=== PATIENT | female | born 1995 ===

== ENCOUNTER 2020-02-27 13:14 | Outpatient (REF) | payer OTHER, SELFPAY ==
[2020-02-28 03:18] LABS: CT PCR NOT DETECTED (Not Detect.); NG PCR NOT DETECTED (Not Detect.)
== END 2020-02-27 13:15 | disposition home or self-care (01) ==
LOC: HO.LAB 13:14
PROVIDERS: PCP Internal Medicine; Referring Provider Internal Medicine; Visit Provider Advanced Practice Midwife
DX: Z01.419 Encounter for gynecological examination (general) (routine) without abnormal findings (principal); Z11.3 Encounter for screening for infections with a predominantly sexual mode of transmission; E66.01 Morbid (severe) obesity due to excess calories
CPT/HCPCS: 87491; 87591; 88142

== ENCOUNTER 2020-03-26 10:52 | Outpatient (REF) | payer OTHER, SELFPAY ==
[2020-03-26 12:12] LABS: C Reactive Protein 1.09 mg/dL (< or = 0.50)
[2020-03-26 12:36] LABS: Thyroid Stimulating Hormone 2.48 uIU/mL (0.32-4.0)
[2020-03-26 12:55] LABS: Erythrocyte Sedimentation Rate 19 MM/HR (0-20)
[2020-03-29 00:07] LABS: Anti Nuclear Antibody Screen POSITIVE (NEGATIVE)
== END 2020-03-26 10:53 | disposition home or self-care (01) ==
LOC: HO.LAB 10:52
PROVIDERS: PCP Internal Medicine; Visit Provider Psychiatry & Neurology Neurology
DX: M25.50 Pain in unspecified joint (principal)
CPT/HCPCS: 36415; 84443; 85652; 86038; 86039; 86140

== ENCOUNTER 2020-06-14 15:04 | Outpatient (REF) | payer OTHER, SELFPAY ==
--- NOTE | ~2020-06-14 | XR_ITS ---
EXAMINATION: BILATERAL HAND AND WRIST X-RAY CLINICAL INFORMATION: Pain COMPARISON: None TECHNIQUE: 4 views of the hand and wrist FINDINGS: Bone alignment is normal. No fracture or dislocation is seen. Joint spaces are normal. Soft tissues are normal. XR/XR hand wrist LT IMPRESSION: Unremarkable exam.
--- NOTE | ~2020-06-14 | XR_ITS ---
EXAMINATION: BILATERAL HAND AND WRIST X-RAY CLINICAL INFORMATION: Pain COMPARISON: None TECHNIQUE: 4 views of the hand and wrist FINDINGS: Bone alignment is normal. No fracture or dislocation is seen. Joint spaces are normal. Soft tissues are normal. XR/XR hand wrist RT IMPRESSION: Unremarkable exam.
[2020-06-14 16:20] LABS: MANUAL DIFF FLAG NO
[2020-06-14 16:22] LABS: Glucose Urine UA NEG (NEG); Leukocyte Esterase Urine NEG (NEG); Nitrite Urine NEG (NEG); Specific Gravity - Urine >= 1.030 (1.005-1.025); Urine Blood TRACE (NEG); Urine Ketones NEG (NEG); Urine Protein NEG (NEG-TRACE)
[2020-06-14 16:25] LABS: Appearance Urine CLEAR; Color Urine YELLOW
[2020-06-14 16:28] LABS: Basophils Absolute Auto 0.1 X10*3/uL (0.0-0.2); Eosinophils Absolute Auto 0.1 X10*3/uL (0.0-0.4); Eosinophils Percent Auto 1.7 % (0-4); Hematocrit 42.8 % (37-47); Hemoglobin 13.4 g/dl (12.0-16.0); Lymphocytes Absolute Auto 1.8 X10*3/uL (1.2-4.9); Lymphocytes Percent Auto 31.8 % (20-40); Mean Corpuscular HGB Conc 31.3 g/dl (31.0-35.0); Mean Corpuscular Hemoglobin 27.5 pg (27.0-33.0); Mean Corpuscular Volume 87.7 fL (80-98); Mean Platelet Volume 11.6 fL (9.4-12.3); Monocytes Absolute Auto 0.3 X10*3/uL (0.1-1.2); Monocytes Percent Auto 4.8 % (2-11); Neutrophils Absolute Auto 3.5 X10*3/uL (2.0-8.3); Neutrophils Percent Auto 60.7 % (45-73); Platelet Count 304 X10*3/uL (160-400); Red Blood Count 4.88 X10*6/uL (4.20-5.50); Red Cell Distribution Width 11.9 % (11.0-16.0); White Blood Count 5.8 X10*3/uL (4.8-10.8)
[2020-06-14 16:32] LABS: Bacteria Urine 1+ /LPF; RBC Urine 0-2 /HPF (0); Squamous Epithelial Cell Urine 1+ /LPF; WBC Urine 0 /HPF (0-4)
[2020-06-14 16:47] LABS: Alanine Aminotransferase 17 U/L (0-31); Albumin Level 3.9 g/dL (3.5-5.0); Alkaline Phosphatase 70 U/L (39-117); Anion Gap 12 (12-20); Aspartate Amino Transferase 18 U/L (5-31); Bilirubin Total 0.4 mg/dL (0.0-1.0); Blood Urea Nitrogen 7 mg/dL (9-16); C Reactive Protein 0.91 mg/dL (< or = 0.50); Calcium 8.6 mg/dL (8.4-10.2); Carbon Dioxide 21 mmol/L (22-29); Chloride 111 mmol/L (96-108); Estimated Glomerular Filt Rate > 60; Glucose Random 96 mg/dL (60-115); Sodium 140 mmol/L (135-145); Total Protein 7.3 g/dL (6.5-8.0)
[2020-06-14 17:51] LABS: Erythrocyte Sedimentation Rate 21 MM/HR (0-20)
[2020-06-15 12:32] LABS: Complement C3 164 mg/dL (83-193)
[2020-06-15 12:58] LABS: Anti DNA DS Antibody 1 IU/mL; Antibody to SS-A Antigen <1.0 NEG AI (<1.0 NEG); Antibody to SS-B Antigen <1.0 NEG AI (<1.0 NEG); Cyclic Citrullinated Peptide <16 UNITS; SM/Ribonucleoprotein Ab <1.0 NEG AI (<1.0 NEG); Smith Protein <1.0 NEG AI (<1.0 NEG)
== END 2020-06-14 15:05 | disposition home or self-care (01) ==
LOC: HO.LAB 15:04
PROVIDERS: PCP Internal Medicine; Visit Provider Student in an Organized Health Care Education/Training Program
DX: M25.50 Pain in unspecified joint (principal)
CPT/HCPCS: 36415; 73110; 73130; 80053; 81001; 85025; 85652; 86140; 86160; 86200; 86225; 86235; 99202

== ENCOUNTER → 2020-07-10 15:03 | Outpatient (BNVA) | payer OTHER, SELFPAY | PROVIDERS: PCP Internal Medicine; Visit Provider Student in an Organized Health Care Education/Training Program | DX: M79.642 Pain in left hand (principal); M79.641 Pain in right hand | CPT/HCPCS: 99212 ==

== ENCOUNTER 2021-01-15 15:57 | Outpatient (REF) | payer OTHER, SELFPAY ==
--- NOTE | ~2021-01-15 | CT_ITS ---
EXAMINATION: CT HEAD WITHOUT CONTRAST CLINICAL INFORMATION: Pseudotumor cerebri. COMPARISON: None TECHNIQUE: Contiguous axial imaging was performed from the skull base to vertex without intravenous administration of contrast. This CT examination was performed using dose optimization techniques as appropriate, variously including the following: *Automated exposure control *Adjustment of mA and/or kV according to patient size (this includes techniques or standardized protocols for targeted exams where dose is matched to indication/reason for exam; i.e. extremities or head) *Use of iterative reconstruction technique DLP: 770 mGy-cm FINDINGS: There is no evidence of acute intracranial hemorrhage or territorial infarction. No abnormal mass effect or midline shift is seen. Corona to white matter differentiation is well preserved. No extra-axial fluid collections are identified. The ventricles are normal in size. There is no abnormal attenuation within the brain parenchyma. The osseous structures and soft tissues are normal. The mastoid air cells and visualized portions of the paranasal sinuses are well aerated. CT/CT head/brain wo con IMPRESSION: No acute intracranial process.
== END 2021-01-15 15:58 | disposition home or self-care (01) ==
LOC: HO.CT 15:57
PROVIDERS: PCP Internal Medicine; Visit Provider Psychiatry & Neurology Neurology
DX: G93.2 Benign intracranial hypertension (principal)
CPT/HCPCS: 70450

== ENCOUNTER 2021-01-17 09:07 | Day surgery (SDC) | payer OTHER, SELFPAY ==
[2021-01-17] VITALS (7 sets, daily range): BP systolic 107–131; BP diastolic 67–84; PULSE 79–92; RESP 16–20; TEMP 36.5; O2SAT 98–100; BMI 51.1
--- NOTE | ~2021-01-17 | FL_ITS ---
EXAMINATION: XR LUMBAR PUNCTURE CLINICAL INFORMATION: Pseudotumor cerebri. COMPARISON: None TECHNIQUE: Following explaining fluoroscopy-guided lumbar puncture procedure, benefits and risk, a written consent was obtained. Patient was placed prone on fluoroscopy table and low back area was cleaned and draped in usual sterile manner. 1% lidocaine was injected at puncture site. A 20-gauge 6 inch long spinal needle was advanced from the skin intrathecally in the left at a midline fashion. After obtaining and observing CSF return and patient was quickly placed in left lateral decubitus view and opening CSF pressure was obtained. CSF was clear 4 test tubes. Post CSF collection the stylet was introduced the needle withdrawn. Patient tolerated procedure extremely well. Simple Band-Aid applied postprocedure. FINDINGS: On AP projection the visualized vertebral heights, alignment and disc heights are normal. The opening CSF pressure measures 17 cm of water. Approximately 30 mL of clear CSF fluid collected in 4 test tubes. FLUOROSCOPY TIME: 0.5 minutes DOSE AREA PRODUCT: 8.345 uGy-m2 (microgray-meter squared) FL/FL guided lumbar puncture LP IMPRESSION: Successful fluoroscopy-guided L4-L5 lumbar performed. Opening CSF pressure 17 cm water. Approximately 13 mL of clear CSF fluid was collected.
[2021-01-17 09:53] LABS: MANUAL DIFF FLAG NO
[2021-01-17 09:57] LABS: Basophils Absolute Auto 0.1 X10*3/uL (0.0-0.2); Basophils Percent Auto 0.9 % (0-2); Eosinophils Absolute Auto 0.1 X10*3/uL (0.0-0.4); Eosinophils Percent Auto 1.1 % (0-4); Hematocrit 41.8 % (37-47); Hemoglobin 13.2 g/dl (12.0-16.0); Imm Gran Abs Auto 0.02 X10*3/uL (0.00-0.03); Imm Gran Pct Auto 0.2 % (0.0-0.4); Lymphocytes Absolute Auto 4.4 X10*3/uL (1.2-4.9); Lymphocytes Percent Auto 44.6 % (20-40); Mean Corpuscular HGB Conc 31.6 g/dl (31.0-35.0); Mean Corpuscular Hemoglobin 28.3 pg (27.0-33.0); Mean Corpuscular Volume 89.7 fL (80-98); Monocytes Absolute Auto 0.6 X10*3/uL (0.1-1.2); Monocytes Percent Auto 5.8 % (2-11); Neutrophils Absolute Auto 4.7 X10*3/uL (2.0-8.3); Neutrophils Percent Auto 47.4 % (45-73); Platelet Count 301 X10*3/uL (160-400); Red Blood Count 4.66 X10*6/uL (4.20-5.50); Red Cell Distribution Width 13.4 % (11.0-16.0); White Blood Count 9.9 X10*3/uL (4.8-10.8)
[2021-01-17 10:01] LABS: Prothrombin Time 11.6 SEC (9.9-13.0)
[2021-01-17 10:04] LABS: Partial Thromboplastin Time 33.2 SEC (24.1-38.0)
[2021-01-17 11:09] LABS: UPreg QC Valid YES; Urine Pregnancy NEGATIVE (NEGATIVE)
[2021-01-17] MEDS: Acetaminophen 325 MG TABLET 650 MG PO (13:01)
[2021-01-17 13:22] LABS: CSF Appearance Clear, Colorless; CSF Tube # 1
[2021-01-17 13:31] LABS: Glucose CSF 65 mg/dL; Total Protein CSF 23.7 mg/dL (15-45)
[2021-01-17 14:34] LABS: Appearance CSF CLEAR; CSF Tube # 4; CSF Volume 4.5 ML; Color CSF COLORLESS; Red Blood Cell CSF 226 MM*3; White Blood Cell CSF 2 MM*3
[2021-01-17 14:35] LABS: Lymphocytes CSF 80 %; Neutrophils CSF 20 %
== END 2021-01-17 15:40 | disposition home or self-care (01) ==
PROVIDERS: Psychiatry & Neurology Neurology; PCP Internal Medicine; Visit Provider Radiology Diagnostic Radiology
PROC: 009U3ZZ Drainage of Spinal Canal, Percutaneous Approach (ICD-10-PCS; CPT 62270; principal; 2021-01-17 11:00)
DX: G93.2 Benign intracranial hypertension (principal); G43.909 Migraine, unspecified, not intractable, without status migrainosus; G62.9 Polyneuropathy, unspecified; M79.643 Pain in unspecified hand; M25.50 Pain in unspecified joint; M79.7 Fibromyalgia; R42 Dizziness and giddiness; Z79.899 Other long term (current) drug therapy
CPT/HCPCS: 36415; 62328; 81025; 82945; 84157; 85025; 85610; 85730; 87015; 87070; 87205; 89051

== ENCOUNTER 2021-01-19 11:55 | Emergency (ER) | payer OTHER, SELFPAY ==
[2021-01-19 12:03] VITALS: BP 137/84; PULSE 96; RESP 18; TEMP 36.9; O2SAT 98; BMI 51.1
[2021-01-19 12:50] LABS: MANUAL DIFF FLAG NO
[2021-01-19 12:57] LABS: Basophils Absolute Auto 0.1 X10*3/uL (0.0-0.2); Basophils Percent Auto 0.6 % (0-2); Eosinophils Absolute Auto 0.1 X10*3/uL (0.0-0.4); Eosinophils Percent Auto 0.8 % (0-4); Hematocrit 44.8 % (37-47); Imm Gran Abs Auto 0.04 X10*3/uL (0.00-0.03); Imm Gran Pct Auto 0.4 % (0.0-0.4); Lymphocytes Absolute Auto 1.8 X10*3/uL (1.2-4.9); Lymphocytes Percent Auto 16.8 % (20-40); Mean Corpuscular HGB Conc 31.3 g/dl (31.0-35.0); Mean Corpuscular Hemoglobin 27.8 pg (27.0-33.0); Mean Corpuscular Volume 89.1 fL (80-98); Mean Platelet Volume 10.3 fL (9.4-12.3); Monocytes Absolute Auto 0.4 X10*3/uL (0.1-1.2); Monocytes Percent Auto 3.3 % (2-11); Neutrophils Absolute Auto 8.3 X10*3/uL (2.0-8.3); Neutrophils Percent Auto 78.1 % (45-73); Platelet Count 305 X10*3/uL (160-400); Red Blood Count 5.03 X10*6/uL (4.20-5.50); Red Cell Distribution Width 13.5 % (11.0-16.0); White Blood Count 10.6 X10*3/uL (4.8-10.8)
[2021-01-19 13:02] LABS: Prothrombin Time 11.2 SEC (9.9-13.0)
[2021-01-19 13:05] LABS: Partial Thromboplastin Time 34.6 SEC (24.1-38.0)
[2021-01-19 13:16] LABS: Anion Gap 11 (12-20); Blood Urea Nitrogen 13 mg/dL (9-16); Calcium 9.3 mg/dL (8.4-10.2); Carbon Dioxide 21 mmol/L (22-29); Chloride 114 mmol/L (96-108); Creatinine Clr Calc Pharmacy 129.9; Estimated Glomerular Filt Rate > 60; Glucose Random 124 mg/dL (60-115); Potassium 4.2 mmol/L (3.3-5.1); Sodium 142 mmol/L (135-145)
--- NOTE | 2021-01-19 13:22 | ED.GENADULT ---
HPI - General Adult General Chief complaint: General Medical Stated complaint: BLOOD PATCH Time Seen by Provider: 01/19/21 12:13 Source: patient and old records reviewed Mode of arrival: ambulatory Limitations: no limitations History of Present Illness complaint: headache 24 hours post LP Onset (ago): day(s) (1) Location: head Severity: severe Quality: crushing Pain Consistency: intermittent Relieving factors: immobilization Exacerbating factors: other (standing up) Associated symptoms: nausea/vomiting Treatments prior to arrival: other (tried tylenol with no relief) Related Data Home Medications Medication Instructions Recorded Confirmed gabapentin 600 mg tablet 600 mg PO TID 12/14/20 12/14/20 prednisone 20 mg tablet 20 mg PO DAILY 12/14/20 12/14/20 Previous Rx's Medication Instructions Recorded propranolol 10 mg tablet 10 mg PO .qhs 30 Days #30 tab 12/17/20 meclizine 25 mg tablet 25 mg PO BID 30 Days #60 tab 12/31/20 Allergies Allergy/AdvReac Type Severity Reaction Status Date / Time No Known Allergies Allergy Verified 01/17/21 09:36 Environmental Allergy Unknown Unknown Uncoded 12/14/20 09:48 Review of Systems Review of Systems: Constitutional : No Fever, No Chills, No Fatigue ENT/Mouth : No sore throat, No Rhinorrhea Eyes: No Eye Pain, No Swelling, No Redness Cardiovascular : No Chest Pain, No SOB, No Dyspnea on Exertion Respiratory : No Cough, No Sputum Gastrointestinal : pos Nausea, No Vomiting, No Diarrhea, No abdominal Pain Genitourinary : No Dysuria, No Urinary Frequency, No Hematuria, Musculoskeletal : No joint pain, No Myalgias, No Joint Swelling Skin : No Skin Lesions, No rash Neuro : No Weakness, No Numbness, No Dizziness, positive Headache Psych : No Anxiety/Panic, No Depression Heme/Lymph: No Bruising, No Bleeding,No Lymphadenopathy Endocrine : No Polyuria, No Polydipsia All other systems reviewed and are negative PMFSH Past Medical History Attestation statement: The following information was validated with the patient. Medical History Morbid obesity Tinea versicolor Family History Family History Father HTN (hypertension) Mother Diabetes mellitus CVD (cardiovascular disease) Maternal Aunt Diabetes mellitus Breast cancer Maternal Uncle Colon cancer Other Mental health disorder Substance use disorder Social History Social History Housing: Apartment Alcohol intake: never Patient Tobacco Use Status: Never used Tobacco Use of substances other than those prescribed or required for medical reasons: No Advance Directives: No Advance Directives Information Provided: No Patient : No Current occupational status: employed Gender identity: Female Physical Exam Vital Signs: Vital Signs: Last Vital Signs Temp 98.7 F 01/19/21 13:38 Pulse 88 01/19/21 13:38 Resp 14 01/19/21 13:38 BP 129/86 01/19/21 13:38 Pulse Ox 100 01/19/21 13:38 Body Mass Index 51.1 Appearance: Alert. Oriented X3. No acute distress. Eyes: Pupils equal, round and reactive to light. ENT: Pharynx normal. Neck: Normal inspection. Neck supple. Has pain with lifting head up CVS: Normal heart rate and rhythm. Pulses normal. Respiratory: No respiratory distress. Breath sounds normal. Abdomen: Soft and nontender. Back: no large mass felt, ecchymosis seen Skin: Skin warm and dry. Normal skin color. Normal skin turgor. Extremities: No lower extremity edema. No calf ttp Neuro: Oriented X 3. No motor deficit. No sensory deficit. 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 for blood patch plan is for either home with good pain control if she does well but may need IR procedure with anesthesia pending input signed out to Alma GUZMAN pending disposition Medical Decision Making MDM Narrative Medical decision making narrative: 25 yo female with pseudotumor cerebrii s/p LP with drainage on 01/17 L4-L5 comes in with headache 24 hours after the procedure dull when laying down but she cannot get up or walk due to the severity of her headache when she does, normal neuro exam doubt SAH, [place]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 - will discuss with anesthesia for possible blood patch Lab Data Result diagrams: 01/19/21 12:39 01/19/21 12:39 Labs: Lab Results 01/19/21 01/19/21 01/19/21 Range/Units 12:39 12:39 12:39 WBC 10.6 (4.8-10.8) X10*3/uL RBC 5.03 (4.20-5.50) X10*6/uL Hgb 14.0 (12.0-16.0) g/dl Hct 44.8 (37-47) % MCV 89.1 (80-98) fL MCH 27.8 (27.0-33.0) pg MCHC 31.3 (31.0-35.0) g/dl RDW 13.5 (11.0-16.0) % Plt Count 305 (160-400) X10*3/uL MPV 10.3 (9.4-12.3) fL Immature Gran % (Auto) 0.4 (0.0-0.4) % Neut % (Auto) 78.1 H (45-73) % Lymph % (Auto) 16.8 L (20-40) % [place] % (Auto) 3.3 (2-11) % Eos % (Auto) 0.8 (0-4) % Baso % (Auto) 0.6 (0-2) % Lymph # (Auto) 1.8 (1.2-4.9) X10*3/uL [place] # (Auto) 0.4 (0.1-1.2) X10*3/uL Eos # (Auto) 0.1 (0.0-0.4) X10*3/uL Baso # (Auto) 0.1 (0.0-0.2) X10*3/uL Abs Immat Gran (auto) 0.04 H (0.00-0.03) X10*3/uL Absolute Neuts (auto) 8.3 (2.0-8.3) X10*3/uL Absolute Nucleated RBC 0.000 (0.0-0.012) X10*3/uL Nucleated RBC % (auto) 0.0 (0.0-0.2) /100WBC PT 11.2 (9.9-13.0) SEC INR 1.0 (0.9-1.1) APTT 34.6 (24.1-38.0) SEC Sodium 142 (135-145) mmol/L Potassium 4.2 (3.3-5.1) mmol/L Chloride 114 H (96-108) mmol/L Carbon Dioxide 21 L (22-29) mmol/L Anion Gap 11 L (12-20) BUN 13 D (9-16) mg/dL Creatinine 0.90 (0.5-1.4) mg/dL Estim Creat Clear Calc 129.9 Estimated GFR > 60 Random Glucose 124 H (60-115) mg/dL Calcium 9.3 D (8.4-10.2) mg/dL Discharge Plan Discharge Clinical Impression: Headache Qualifiers: Headache type: unspecified Headache chronicity pattern: acute headache Intractability: intractable Qualified Code(s): R51.9 - Headache, unspecified Prescriptions: No Action propranolol 10 mg tablet 10 mg PO .qhs 30 Days Qty: 30 RF: 0 meclizine 25 mg tablet 25 mg PO BID 30 Days Qty: 60 RF: 0 gabapentin 600 mg tablet 600 mg PO TID RF: 0 prednisone 20 mg tablet 20 mg PO DAILY RF: 0
[2021-01-19 13:38] VITALS: BP 129/86; PULSE 88; RESP 14; TEMP 37.1; O2SAT 100
[2021-01-19] MEDS: Butalb/Acetamin/Caff 50/325/40 TABLET 2 TAB PO (14:17)
[2021-01-19] MEDS: 0.9 % Sodium Chloride 1,000 ML 999 ML IV (14:17)
[2021-01-19] MEDS: diphenhydrAMINE HCL 50 MG/ML VIAL 25 MG IVPUSH (14:21)
[2021-01-19] MEDS: Metoclopramide HCl 10 MG/2 ML VIAL IVPUSH (14:23)
[2021-01-19 16:03] VITALS: RESP 18
[2021-01-19] MEDS: Morphine Sulfate 4 MG/ML CARTRIDGE IVPUSH (16:03)
[2021-01-19] MEDS: ondansetron HCL 4 MG/2 ML VIAL IVPUSH (16:03)
[2021-01-19 16:09] VITALS: BP 119/70; PULSE 75; RESP 18; TEMP 36.9; O2SAT 96
[2021-01-19 16:10] LABS: COVID-19 Test Negative (Negative); IDNOW Serial# 9DD0AD1C
[2021-01-19] MEDS: 0.9 % Sodium Chloride 1,000 ML 999 ML IVCONT (16:46)
--- NOTE | 2021-01-19 17:12 | P.PNAN_ITS ---
Subjective Subjective Date of Service: 01/20/21 Patient reports: other (Pt had LP by IR on 01/17/21 for pseudotumor cerebri. Day after the procedure she developed positional headaches without other neurological deficits. She is afibrile.) Interval history: PDPH Physical Exam Vital Signs: Vital Signs: Last Vital Signs Temp 98.5 F 01/19/21 16:09 Pulse 75 01/19/21 16:09 Resp 18 01/19/21 16:09 BP 119/70 01/19/21 16:09 Pulse Ox 96 01/19/21 16:09 Body Mass Index 51.1 Const: Orientation/consciousness: oriented to person, oriented to place and oriented to time Neck: Other: no neck stiffness Neck: Yes normal visual inspection, Yes full ROM and Yes no meningeal signs Carotids: normal carotid upstroke Chest: Chest palpation & inspection: normal inspection of the chest Resp: Effort & Inspection: normal respiratory effort Cardio: Rate: regular rate GI: Inspection: Yes normal to inspection : General: Yes no CVA tenderness External Female Exam: normal external appearance Back/Spine/Pelvis: Back: no CVA tenderness Cervical Spine: normal cervical lordosis Thoracic/Lumbar Spine: thoracic and lumbar spine normal to inspection Skin: General skin exam: no rashes or lesions noted Neuro: General: oriented to person, oriented to place, oriented to time, no meningeal signs, no focal motor deficits and CN's II-XI intact bilaterally Cognition (Neuro): normal cognition Extrem: General: Yes normal to inspection Psych: Appearance: grossly normal Progress Note: A&P Assessment and plan Assessment and Plan: PDPH, pt received detailed explanation about the [place] options including the option to refrain from blood patch and get conservative treatment. She preffers blood patch. Risks and benefits were explained and a consent signed. Fall Risk Details Was a PHA Med Consult for Fall Risk requested: no Current Medications: Current Medications Sodium Chloride (Ns) 1,000 mls @ 999 mls/hr IVCONT .Q1H1M LINDA Stop: 01/19/21 17:45 Time Spent With Patient Time: Total time spent is greater than 50% in coordination of care (as documented) at patient's floor/unit and/or counseling patient:yes Time with patient: Greater than 35 minutes No Severe Sepsis: No Severe Sepsis Assessment & Plan Plan: PDPH, pt received detailed explanation about the [place] options including the option to refrain from blood patch and get conservative treatment. She preffers blood patch. Risks and benefits were explained and a consent signed. Patient Instructions: To avoid increased intra-abdominal pressure for the next 24 h Progress Note: Quality Stroke Does the patient have a stroke diagnosis?: No Reason for No Anti-thrombotic by Day Two: N/A - Med Ordered Procedures Date of Service Date of Service: 01/19/21 Abscess I/D Anesthetic used: lidocaine 1% Lumbar Puncture Lumbar Puncture Comments: In the sitting pos. lower back was preppedx3 and draped. 21 ga Thuoty needle inserted in the midline and epidural space was identified about L3-4 level by TAMI Saline technique. Fresh blood was aspirated under steril conditions and 10 ml was slowly injected through the epidural needle. The injection was terminated when pt complained on pressure sensation in lower back and right hip. Patient tolerated the procedure well and reported that headache was immediately resolved. Consent for Procedure: Elective - informed consent obtained Time out performed: Yes Patient position: upright Skin prep: 0.5% Chlorhexidine/Alcohol Local anesthetic used: Lidocaine 1% Amount of anesthesia used (ml): 1 Spinal needle gauge: Other Interspace used: L3-L4 Complications: none Procedural Sedation ASA class: II Preparation: radiation monitor applied and pulse oximeter Complications: none
== END 2021-01-19 19:25 | disposition home or self-care (01) ==
PROVIDERS: Emergency Provider Emergency Medicine; PCP Internal Medicine
DX: R51.9 Headache, unspecified (principal); R11.2 Nausea with vomiting, unspecified; Z20.822 Contact with and (suspected) exposure to COVID-19; Z79.899 Other long term (current) drug therapy
CPT/HCPCS: 36415; 80048; 85025; 85610; 85730; 87635; 96361; 96374; 96375; 99284; J1200; J2270; J2405; J2765

== ENCOUNTER 2021-02-28 22:16 | Emergency (ER) | payer OTHER, SELFPAY ==
[2021-02-28 22:17] VITALS: BP 145/93; PULSE 100; RESP 19; TEMP 36.8; O2SAT 99; BMI 52.3
--- NOTE | 2021-02-28 22:23 | ED.EXTPRO ---
HPI - Extremity Problem General Chief complaint: General Medical Stated complaint: finger nail inj Time Seen by Provider: 02/28/21 22:22 Source: patient Mode of arrival: ambulatory Limitations: no limitations History of Present Illness Complaint: other (nail avulsion) Onset (ago): minute(s) Pain Consistency: constant Location: left and other (pinkie finger) Quality: other (throbbing) Radiation: none Relieving factors: nothing Exacerbating factors: palpation Associated symptoms: other (acrylic nail is hanging off) Context: other (went to hit a bug and struck her nail instead causing it to almost fall off) Related Data Home Medications Medication Instructions Recorded Confirmed gabapentin 600 mg tablet 600 mg PO TID 12/14/20 02/12/21 topiramate 50 mg tablet 50 mg PO BID 02/12/21 02/12/21 Previous Rx's Medication Instructions Recorded meclizine 25 mg tablet 25 mg PO BID 30 Days #60 tab 02/01/21 Allergies Allergy/AdvReac Type Severity Reaction Status Date / Time No Known Allergies Allergy Verified 02/28/21 22:17 Review of Systems Review of Systems: Constitutional : No Fever, No Chills, Cardiovascular : No Chest Pain, No SOB Respiratory : No Dyspnea Gastrointestinal : No abdominal pain Musculoskeletal : No Joint Swelling Skin : No rash, no skin laceration, pos nail avulsion Neuro : No Weakness, No Numbness PMFSH Past Medical History Attestation statement: The following information was validated with the patient. Medical History Carpal tunnel syndrome Fibromyalgia Hypertension Migraines Morbid obesity Tinea versicolor Family History Family History Father HTN (hypertension) Mother Diabetes mellitus CVD (cardiovascular disease) Maternal Aunt Diabetes mellitus Breast cancer Maternal Uncle Colon cancer Other Mental health disorder Substance use disorder Social History Social History Housing: Apartment Alcohol intake: never Patient Tobacco Use Status: Never used Tobacco Advance Directives: No Advance Directives Information Provided: No Patient : No Current occupational status: employed Gender identity: Female Physical Exam Vital Signs: Vital Signs: Last Vital Signs Temp 98.2 F 02/28/21 22:17 Pulse 100 02/28/21 22:17 Resp 19 02/28/21 22:17 BP 145/93 H 02/28/21 22:17 Pulse Ox 99 02/28/21 22:17 Body Mass Index 52.3 Appearance: Alert. Oriented X3. No acute distress. Eyes: Pupils equal, round and reactive to light. ENT: Pharynx normal. Neck: Normal inspection. Neck supple. CVS: Pulses normal. Respiratory: No respiratory distress. Abdomen: Soft and nontender. Skin: Skin warm and dry. Normal skin color. . Extremities: left pinkie finger long acrylic nail in place almost completely avulsed hanging on by small area medial aspect no bleeding, no lacerations noted, patient's own nail is completely stuck to the acrylic, nail is loose at proximal nail fold already Neuro: Oriented X 3. No motor deficit. No sensory deficit. MDM - Extremity (Nontraumatic) MDM Narrative Medical decision making narrative: 25 yo female with L pinkie finger total nail avulsion with overlying acrylic nail - only hanging on by medial nail fold - will need removal and dermabond placement for protection. I do not see a nail bed laceration. Given the acrylic nail I cannot salvage her underlying nail she is aware she might suffer nail disfigurement Procedures Foreign Body Removal Time Out Performed: yes Site: left Description of foreign body: other (nail avulsion and acrylic naiil) Sedation/Analgesia: none Technique: manual removal (removed after cutting small attached area on medial aspect of nail) Confirmed by:: direct visualization Complications: none Post-procedure exam: awake, alert Neurovascular: normal distal pulse, normal capillary fill, distal light touch sensation intact and distal motor function normal Nerve Block Nerve Block 1: Time out performed: Yes Local Anesthetic: lidocaine 1% Amount of anesthesia used (mL): 3 Side: left Nerve Blocks: digital Procedure Successful: Yes Patient Tolerated Procedure: well Complications: none Discharge Plan Discharge Clinical Impression: Nail avulsion, finger Qualifiers: Encounter type: initial encounter Qualified Code(s): S61.309A - Unspecified open wound of unspecified finger with damage to nail, initial encounter Patient Disposition: Home, Self-Care Instructions: Nail Avulsion (ED), Nail Removal (ED) Additional Instructions: return to ED for any worsening symptoms or concerns watch for redness, swelling, yellow drainage no soaking other than a quick hand washing or shower - try to keep as clean and DRY as possible. allow the dermabond to come off on its own this may take up to 2 weeks this is a protective barrier Prescriptions: No Action meclizine 25 mg tablet 25 mg PO BID 30 Days Qty: 60 RF: 0 gabapentin 600 mg tablet 600 mg PO TID RF: 0 topiramate 50 mg tablet 50 mg PO BID RF: 0 Stand Alone Forms: Work/School Release
[2021-02-28] MEDS: Lidocaine HCl 1 % MPF 5 ML VIAL SUBCUT (22:33)
--- NOTE | 2021-02-28 23:00 | PC.NURSE ---
PT LEFT PINK NAIL REMOVED BY DR. BONILLA DERMABOND APPLIED AND THEN DSD.
== END 2021-02-28 23:27 | disposition home or self-care (01) ==
PROVIDERS: Emergency Provider Emergency Medicine; PCP Internal Medicine
DX: S61.307A Unspecified open wound of left little finger with damage to nail, initial encounter (principal); W22.09XA Striking against other stationary object, initial encounter; Y93.89 Activity, other specified; Y92.9 Unspecified place or not applicable; Y99.9 Unspecified external cause status
CPT/HCPCS: 11730; 99283; 99284

== ENCOUNTER 2021-03-25 08:06 | Outpatient (REF) | payer OTHER, SELFPAY ==
[2021-03-25 14:02] LABS: CT PCR NOT DETECTED (Not Detect.); NG PCR NOT DETECTED (Not Detect.)
[2021-03-26 09:22] LABS: BV Int Neg Control Negative (Negative); BV Int Pos Control Positive (Positive)
== END 2021-03-25 08:07 | disposition home or self-care (01) ==
LOC: HO.LAB 08:06
PROVIDERS: PCP Internal Medicine; Visit Provider Advanced Practice Midwife
DX: Z01.419 Encounter for gynecological examination (general) (routine) without abnormal findings (principal); E66.01 Morbid (severe) obesity due to excess calories; N89.8 Other specified noninflammatory disorders of vagina; Z68.43 Body mass index [BMI] 50.0-59.9, adult; Z79.899 Other long term (current) drug therapy; Z20.2 Contact with and (suspected) exposure to infections with a predominantly sexual mode of transmission
CPT/HCPCS: 87480; 87491; 87510; 87591; 87660

== ENCOUNTER 2021-07-24 16:10 | Outpatient (REF) | payer OTHER, SELFPAY ==
[2021-07-24 17:08] LABS: C Reactive Protein 0.69 mg/dL (< or = 0.50)
[2021-07-24 17:28] LABS: Thyroid Stimulating Hormone 0.47 uIU/mL (0.32-4.0)
[2021-07-24 17:38] LABS: Erythrocyte Sedimentation Rate 23 MM/HR (0-20)
[2021-07-26 01:32] LABS: Lyme Abs Screen <0.90 index
[2021-07-26 19:21] LABS: Anti Nuclear Antibody Screen NEGATIVE (NEGATIVE)
== END 2021-07-24 16:11 | disposition home or self-care (01) ==
LOC: HO.LAB 16:10
PROVIDERS: PCP Internal Medicine; Visit Provider Psychiatry & Neurology Neurology
DX: M79.7 Fibromyalgia (principal); M25.50 Pain in unspecified joint
CPT/HCPCS: 36415; 82550; 84443; 85652; 86038; 86039; 86140; 86617; 86618

== ENCOUNTER 2021-09-10 11:55 | Outpatient (REF) | payer OTHER, SELFPAY ==
--- NOTE | 2021-09-10 13:00 | EEG_ITS ---
The waking background activity consists of a well-defined posterior 9 hertz alpha frequency that is seen symmetrically and attenuates well with eye opening while low-voltage fast frequencies predominate anteriorly. Drowsiness is characterized by diffuse theta slowing. During sleep, symmetrical frontal central sleep spindles and vertex sharp transients developed over both hemispheres. Three episodes of bilateral anterior quadrant frontal theta slowing of 4-5 hertz are seen lasting 2-3 seconds without any clinical symptoms. IMPRESSION: This 24-hour ambulatory EEG is considered within normal limits, however, 3 episodes of 2-3 second bursts of bifrontal synchronous 4-5 hertz theta are seen without any associated clinical symptoms. Clinical correlation is suggested. MD ARI Warren/LEVI / [id number]
== END 2021-09-10 11:56 | disposition home or self-care (01) ==
LOC: HO.NEURO 11:55
PROVIDERS: PCP Internal Medicine; Visit Provider Psychiatry & Neurology Neurology
DX: R56.9 Unspecified convulsions (principal)
CPT/HCPCS: 95708; 95957

== ENCOUNTER 2021-09-17 10:04 | Outpatient (REF) | payer OTHER, SELFPAY ==
[2021-09-17 11:51] LABS: HCG Quantitative < 2 mIU/mL
== END 2021-09-17 10:05 | disposition home or self-care (01) ==
LOC: HO.HMGCLDS 10:04
PROVIDERS: PCP Internal Medicine; Visit Provider Nurse Practitioner Family
DX: R10.32 Left lower quadrant pain (principal); N92.6 Irregular menstruation, unspecified
CPT/HCPCS: 36415; 84702

== ENCOUNTER 2021-12-17 11:14 | Outpatient (REF) | payer OTHER, SELFPAY ==
[2021-12-17 13:55] LABS: MANUAL DIFF FLAG NO
[2021-12-17 14:00] LABS: Basophils Absolute Auto 0.1 X10*3/uL (0.0-0.2); Eosinophils Absolute Auto 0.1 X10*3/uL (0.0-0.4); Hematocrit 47.7 % (37.0-47.0); Hemoglobin 14.9 g/dl (12.0-16.0); Imm Gran Abs Auto 0.03 X10*3/uL (0.00-0.03); Imm Gran Pct Auto 0.3 % (0.0-0.4); Lymphocytes Absolute Auto 3.9 X10*3/uL (1.2-4.9); Lymphocytes Percent Auto 35.6 % (20-40); Mean Corpuscular HGB Conc 31.2 g/dl (31.0-35.0); Mean Corpuscular Hemoglobin 27.3 pg (27.0-33.0); Mean Corpuscular Volume 87.4 fL (80.0-98.0); Mean Platelet Volume 11.2 fL (9.4-12.3); Monocytes Absolute Auto 0.5 X10*3/uL (0.1-1.2); Monocytes Percent Auto 4.5 % (2-11); Neutrophils Absolute Auto 6.3 x10*3/uL (2.0-8.3); Neutrophils Percent Auto 57.6 % (45-73); Platelet Count 360 X10*3/uL (160-400); Red Blood Count 5.46 X10*6/uL (4.20-5.50); Red Cell Distribution Width 12.4 % (11.0-16.0)
[2021-12-17 14:14] LABS: Alanine Aminotransferase 14 U/L (0-31); Albumin Level 4.3 g/dL (3.5-5.0); Alkaline Phosphatase 81 U/L (39-117); Anion Gap 14 (12-20); Aspartate Amino Transferase 14 U/L (5-31); Bilirubin Total 0.2 mg/dL (0.0-1.0); Blood Urea Nitrogen 14 mg/dL (9-16); Calcium 9.1 mg/dL (8.4-10.2); Carbon Dioxide 22 mmol/L (22-29); Chloride 110 mmol/L (96-108); Cholesterol 243 mg/dL; Estimated Glomerular Filt Rate > 60; Glucose Fasting 85 mg/dL (60-99); HDL Cholesterol 55 mg/dL; LDL Cholesterol Calculated 144 mg/dl; Potassium 4.3 mmol/L (3.3-5.1); Sodium 142 mmol/L (135-145); Total Protein 8.1 g/dL (6.5-8.0); Triglycerides 223 mg/dL
== END 2021-12-17 11:15 | disposition home or self-care (01) ==
LOC: HO.HMGCLDS 11:14
PROVIDERS: PCP Internal Medicine; Visit Provider Internal Medicine
DX: Z00.01 Encounter for general adult medical examination with abnormal findings (principal); E66.01 Morbid (severe) obesity due to excess calories; G43.909 Migraine, unspecified, not intractable, without status migrainosus; H40.9 Unspecified glaucoma; Z91.09 Other allergy status, other than to drugs and biological substances
CPT/HCPCS: 36415; 80053; 80061; 84443; 85025

== ENCOUNTER 2022-02-26 14:29 | Outpatient (REF) | payer OTHER, SELFPAY ==
[2022-02-26 14:53] LABS: MANUAL DIFF FLAG NO
[2022-02-26 15:21] LABS: Basophils Absolute Auto 0.1 X10*3/uL (0.0-0.2); Basophils Percent Auto 0.8 % (0-2); Eosinophils Absolute Auto 0.1 X10*3/uL (0.0-0.4); Eosinophils Percent Auto 1.1 % (0-4); Hematocrit 41.1 % (37.0-47.0); Hemoglobin 13.9 g/dl (12.0-16.0); Imm Gran Abs Auto 0.03 X10*3/uL (0.00-0.03); Imm Gran Pct Auto 0.3 % (0.0-0.4); Lymphocytes Absolute Auto 3.1 X10*3/uL (1.2-4.9); Lymphocytes Percent Auto 29.1 % (20-40); Mean Corpuscular HGB Conc 33.8 g/dl (31.0-35.0); Mean Corpuscular Hemoglobin 29.7 pg (27.0-33.0); Mean Corpuscular Volume 87.8 fL (80.0-98.0); Mean Platelet Volume 11.5 fL (9.4-12.3); Monocytes Absolute Auto 0.6 X10*3/uL (0.1-1.2); Monocytes Percent Auto 5.5 % (2-11); Neutrophils Absolute Auto 6.7 x10*3/uL (2.0-8.3); Neutrophils Percent Auto 63.2 % (45-73); Platelet Count 284 X10*3/uL (160-400); Red Blood Count 4.68 X10*6/uL (4.20-5.50); Red Cell Distribution Width 12.7 % (11.0-16.0); White Blood Count 10.7 X10*3/uL (4.8-10.8)
[2022-02-26 15:44] LABS: Anion Gap 16 (12-20); Blood Urea Nitrogen 13 mg/dL (9-16); Calcium 9.1 mg/dL (8.4-10.2); Carbon Dioxide 18 mmol/L (22-29); Chloride 112 mmol/L (96-108); Estimated Glomerular Filt Rate > 60; Glucose Random 84 mg/dL (60-115); Potassium 3.9 mmol/L (3.3-5.1); Sodium 142 mmol/L (135-145)
[2022-02-26 16:08] LABS: T4 Thyroxine 6.4 ug/dL (4.5-12.0); Thyroid Stimulating Hormone 0.94 uIU/mL (0.32-4.0)
== END 2022-02-26 14:30 | disposition home or self-care (01) ==
LOC: HO.LAB 14:29
PROVIDERS: PCP Internal Medicine; Visit Provider Psychiatry & Neurology Neurology
DX: R56.9 Unspecified convulsions (principal)
CPT/HCPCS: 36415; 80048; 84436; 84443; 85025

== ENCOUNTER 2022-07-08 14:47 | Outpatient (REF) | payer OTHER, SELFPAY ==
[2022-07-09 15:50] LABS: CT PCR NOT DETECTED (Not Detect.); NG PCR NOT DETECTED (Not Detect.)
[2022-07-10 09:36] LABS: BV Int Neg Control Negative (Negative); BV Int Pos Control Positive (Positive)
== END 2022-07-08 14:48 | disposition home or self-care (01) ==
LOC: HO.LNP 14:47
PROVIDERS: PCP Internal Medicine; Visit Provider Advanced Practice Midwife
DX: Z01.419 Encounter for gynecological examination (general) (routine) without abnormal findings (principal); E66.01 Morbid (severe) obesity due to excess calories; Z79.899 Other long term (current) drug therapy; Z20.2 Contact with and (suspected) exposure to infections with a predominantly sexual mode of transmission
CPT/HCPCS: 0353U; 87480; 87510; 87660; 88142

== ENCOUNTER 2022-12-24 10:49 | Outpatient (AMB) | payer OTHER, SELFPAY ==
[2022-12-24 10:51] VITALS: BP 116/70; PULSE 73; O2SAT 98; BMI 48.4
--- NOTE | 2022-12-24 10:51 | A.OFFPC_ITS ---
Vital Signs 12/24/22 10:51 Height 5 ft 4 in Weight 282 lb 3 oz BMI 48.4 BP 116/70 Blood Pressure Location Lt brachial Position Sitting Pulse 73 Pulse Source Pulse Oximeter Pulse Oximetry (%) 98 Oxygen Delivery Method Room Air Intake Visit Reasons: annual PE Allergies Seasonal Allergies Allergy (Mild, Verified 12/24/22 10:51) Hives shellfish Allergy (Mild, Uncoded 07/08/22 14:56) Anaphylaxis Medication List - Last Reconciled 12/24/22 by Bernardino Barnett MD gabapentin 600 mg PO TID meclizine 25 mg PO BID 30 days prednisolone acetate 1% 1 drp ophthalmic (eye) QID prednisone 10 mg PO DAILY propranolol 10 mg PO .qhs 30 days timolol maleate 0.5% 1 drp ophthalmic (eye) BID topiramate 100 mg PO BID Tobacco use date assessed: 12/24/22 Dental Screening Dental Screen Date: 12/24/22 Did you have a dental problem in the last 6 months where you did not have access to dental care?: No Was dental information given to patient?: No HPI annual PE HPI Details Physical exam appointment Patient is 27-year-old female with a history of migraine headaches and fibromyalgia She is seeing a neurologist all her medications are through their office Patient is seeing [facility] yearly We discussed healthcare proxy paperwork today and filled the paperwork her is present and he signed the paperwork as patient's healthcare proxy. Lab order placed to be done fasting Morbid obesity: We talked about the obesity as well patient is already aware about dietary restrictions she is exercising regularly She will look up phentermine and get back to me if she would like to give it a try. Also complaining of pain in her small joints of hand, patient have a history of poly arthralgia. [facility] Medical History Carpal tunnel syndrome Fibromyalgia Glaucoma Hypertension Migraines Morbid obesity Tinea versicolor Surgical History Hx of LASIK Family History Father HTN (hypertension) Mother Diabetes mellitus CVD (cardiovascular disease) Maternal Aunt Diabetes mellitus Breast cancer Maternal Uncle Colon cancer Other Mental health disorder Substance use disorder Social History Housing: Apartment Alcohol intake: never Patient Tobacco Use Status: Never used Tobacco e-Cigarette/Vaping Use: Never Used service: No Current occupational status: employed Gender identity: Female Cognitive needs: No Hearing needs: No Vision needs: Yes Female Reproductive History Menstrual Age of Menarche: 11 Questionnaire PHQ-9 Over the last 2 weeks, how often have you been bothered by any of the following problems? 1. Little interest or pleasure in doing things: not at all 2. Feeling down, depressed, or hopeless: not at all 3. Trouble falling or staying asleep, or sleeping too much: not at all 4. Feeling tired or having little energy: not at all 5. Poor appetite or overeating: not at all 6. Feeling bad about yourself - or that you are a failure or have let yourself or your family down: not at all 7. Trouble concentrating on things, such as reading the newspaper or watching television: not at all 8. Moving or speaking so slowly that other people could have noticed. Or the opposite - being so fidgety or restless that you have been moving around a lot more than usual: not at all 9. Thoughts that you would be better off or of hurting yourself in some way: not at all Total score: 0 Depression Screening Interpretation: Negative 87928 - PHQ-9 Billing: Yes Source: Developed by Drs. Julio Loco, Kelley Blum, Hu Valentine and colleagues, with an educational liam from [employer]. Thrive Questionnaire Date Thrive assessed: 12/24/22 I am a: Patient What is your living situation today?: I have a steady place to live Within the past 12 months, did the food you bought not last and you didn't have the money to get more?: Never true Within the past 12 months, did you worry whether your food would run out before you got money to buy more?: Never true Do you have trouble paying for medicines?: No Do you have trouble getting transportation to medical appointments?: No Do you have trouble paying your heating and electricity bill?: No Do you have trouble taking care of your child, family member or friend?: No Do you have trouble with day-to-day activities such as bathing, preparing meals, shopping, managing finances, etc.?: No Are you currently unemployed and looking for a job?: No Are you interested in more education?: No AUDIT C Alcohol Use Questionnaire (AUDIT-C) 1. How often do you have a drink containing alcohol?: Never 3. How often do you have six or more drinks on one occasion?: Never Total Score: 0 Score Reviewed/Action Taken: Yes CHAPSI-7 AMB Questionnaire CHAPIS-7 Date CHAPIS - 7 assessed: 12/24/22 Feeling nervous, anxious, or on edge: 0 = Not at all Not being able to stop or control worryin = Not at all Worrying too much about different things: 0 = Not at all Trouble relaxin = Not at all Being so restless that it is hard to sit still: 0 = Not at all Becoming easily annoyed or irritable: 0 = Not at all Feeling afraid as if something awful might happen: 0 = Not at all Total CHAPIS-7 score (0-4 normal; 5-9 mild; 10-14 moderate; 15-21 severe): 0 Source: Developed by Drs. Julio Loco, Kelley Blum, Hu Valentine and colleagues, with an educational liam from [employer]. CHAPIS-7 Assessment Billing CHAPIS-7 Assessment Tool: CHAPIS-7 Assessment 71324 Review of Systems Const Denies chills, Denies fever(s) and Denies headache(s) Eyes Denies blurry vision ENT Denies headache(s), Denies nasal discharge, Denies nasal obstruction, Denies odynophagia and Denies sinus pain Card Denies chest pain at rest and Denies chest pain with activity Resp Denies cough and Denies hemoptysis GI Denies diarrhea, Denies odynophagia, Denies vomiting and Denies hematemesis Reports as per HPI Musc Denies abnormal gait Skin/Breast Reports as per HPI Neuro Denies Neuro-related abnormal movements, Denies Abnormal speech present, Denies abnormal gait, Denies headache(s) and Denies Sensory deficit (Neuro) Psych Denies mood swings and Denies paranoia Endo Reports as per HPI Andres/Lymph Reports as per HPI Aller/Immun Reports as per HPI Physical exam (Primary Care) Vital Signs: Last Vital Signs Pulse 73 12/24/22 10:51 BP 116/70 12/24/22 10:51 Pulse Ox 98 12/24/22 10:51 Oxygen Delivery Method Room Air 12/24/22 10:51 BMI result Body Mass Index 48.4 BMI Assessment/Plan discussion: High Tobacco/Smoking Status: Tobacco use Status Tobacco use date assessed 12/24/22 12/24/22 10:53 Patient Tobacco Use Status Never used Tobacco 12/24/22 10:53 Tobacco use type 09/16/21 15:41 e-Cigarette/Vaping Use Never Used 12/24/22 10:53 PHQ-9: PHQ-9 Score PHQ-9: Total score 0 12/24/22 14:59 Depression Screening Interpretation: Negative Thrive Assessment: Date of Thrive Assessment Date Thrive assessed 12/24/22 12/24/22 11:23 Forms completed: Health Care Proxy Actual minutes spent: 16 Const General: cooperative, comfortable and no acute distress Orientation/consciousness: patient oriented x3 HENMT Head: Yes normocephalic and Yes atraumatic Eyes General: appearance normal, both eyes and all related structures Pupils: Equal, round and reactive pupils present EOM: EOMs intact bilaterally Neck Neck: Yes supple and No lymphadenopathy Thyroid: Thyroid normal Lymphatic: no lymphadenopathy noted Resp Effort & Inspection: normal respiratory effort and able to speak in complete sentences Auscultation: clear to auscultation bilaterally Cardio Heart sounds: S1 normal heart sound present and S2 normal heart sound present GI Palpation (GI): Soft to palpation and nontender Auscultation: normal bowel sounds General: Yes no CVA tenderness Back/Spine/Pelvis Back: no CVA tenderness Skin General skin exam: elasticity normal and turgor normal Neuro General: patient oriented x3 and gait normal Cranial nerves: Yes Equal, round and reactive pupils present Speech: No Abnormal speech present Sensory Exam: No Sensory deficit (Neuro) Coordination: tandem gait normal and Romberg test negative Extrem General: Yes normal exam except as noted and No edema Assessment and Plan Assessment & Plan (1) Encounter for general adult medical examination with abnormal findings: Code(s): Z00.01 - Encounter for general adult medical examination with abnormal findings (2) Migraine headache: Code(s): G43.909 - Migraine, unspecified, not intractable, without status migrainosus (3) Morbid obesity due to excess calories: Comment: If your BMI is between 25 and 29.9, you are overweight. If your BMI is 30 or greater, you are obese. ___ Being obese is a problem, because it increases the risks of many different health problems. It can also make it hard for you to move, breathe, and do other things that people who are at a healthy weight can do easily. Plus, being obese can be hard emotionally. ___ What are the health risks of being obese? Being obese increases a persons risk of developing many health problems. Here are just a few examples: __ Diabetes High blood pressure, High cholesterol, Heart disease (including heart attacks) Stroke, Sleep apnea (a disorder in which you stop breathing for short periods while asle ep) Asthma, Cancer __ Does being obese shorten a persons life? Yes. Studies show that people who are obese younger than people who are a healthy weight. They also show that the risk of goes up the heavier a person is. The degree of increased risk depends on how long the person has been obese, and on what other medical problems he or she has. , Reduce your carbohydrate intake and choose carbs that are complex. Remember as a general rule of thumb, avoid highly processed foods. If it's white and soft, it's probably been stripped of its nutritional value. Change white bread to who le wheat bread, white rice to brown rice, white potatoes to sweet potatoes, white pasta to whole wheat pasta. Monitor portion sizes too: protein should be no bigger than your fist. Limit your red meat intake to only once or twice a wk. Eat more white meat but make sure to avoid creamy sauces etc. Broiling, baking or grilling is best. Increase dark, green leafy vegetables and fruits. Code(s): E66.01 - Morbid (severe) obesity due to excess calories (4) Fibromyalgia: Code(s): M79.7 - Fibromyalgia (5) Polyarthralgia: Code(s): M25.50 - Pain in unspecified joint (6) Patient has healthcare proxy: Code(s): Z78.9 - Other specified health status Plan Physical exam appointment Patient is 27-year-old female with a history of migraine headaches and fibromyalgia She is seeing a neurologist all her medications are through their office Patient is seeing [facility] yearly We discussed healthcare proxy paperwork today and filled the paperwork her is present and he signed the paperwork as patient's healthcare proxy. Lab order placed to be done fasting Morbid obesity: We talked about the obesity as well patient is already aware about dietary restrictions she is exercising regularly She will look up phentermine and get back to me if she would like to give it a try. Also complaining of pain in her small joints of hand, patient have a history of poly arthralgia. Orders: Orders Comprehensive [place]. Panel Fast Today E66.01 - Morbid (severe) obesity due to excess calories, G43.909 - Migraine, unspecified, not intractable, without status migrainosus, M25.50 - Pain in unspecified joint, M79.7 - Fibromyalgia, Z00.01 - Encounter for general adult medical examination with abnormal findings Lipid Panel Today E66.01 - Morbid (severe) obesity due to excess calories, G43.909 - Migraine, unspecified, not intractable, without status migrainosus, M25.50 - Pain in unspecified joint, M79.7 - Fibromyalgia, Z00.01 - Encounter for general adult medical examination with abnormal findings TSH reflex Free T4 Today E66.01 - Morbid (severe) obesity due to excess calories, G43.909 - Migraine, unspecified, not intractable, without status migrainosus, M25.50 - Pain in unspecified joint, M79.7 - Fibromyalgia, Z00.01 - Encounter for general adult medical examination with abnormal findings Complete Blood Count Auto Diff Today E66.01 - Morbid (severe) obesity due to excess calories, G43.909 - Migraine, unspecified, not intractable, without status migrainosus, M25.50 - Pain in unspecified joint, M79.7 - Fibromyalgia, Z00.01 - Encounter for general adult medical examination with abnormal findings Coding Level of Care Code Est Pt Prev Care 18-39y(39590) Diagnoses Encounter for general adult medical examination with abnormal findings Z00.01 Migraine headache G43.909 Morbid obesity due to excess calories E66.01 Fibromyalgia M79.7 Polyarthralgia M25.50 Patient has healthcare proxy Z78.9 Additional Codes CHAPIS-7 Assessment Billing - CHAPIS-7 Assessment Tool: CHAPIS-7 Assessment 25025 ([id number])
== END 2022-12-24 13:03 | disposition home or self-care (01) ==
PROVIDERS: Visit Provider Internal Medicine
DX: Z00.00 Encounter for general adult medical examination without abnormal findings (principal); G43.909 Migraine, unspecified, not intractable, without status migrainosus; E66.01 Morbid (severe) obesity due to excess calories; Z68.42 Body mass index [BMI] 45.0-49.9, adult; M79.7 Fibromyalgia; M25.50 Pain in unspecified joint; Z78.9 Other specified health status
CPT/HCPCS: 99395

== ENCOUNTER 2022-12-24 11:18 | Outpatient (REF) | payer OTHER, SELFPAY ==
[2022-12-24 13:31] LABS: MANUAL DIFF FLAG NO
[2022-12-24 13:39] LABS: Basophils Absolute Auto 0.1 X10*3/uL (0.0-0.2); Basophils Percent Auto 0.9 % (0-2); Eosinophils Absolute Auto 0.1 X10*3/uL (0.0-0.4); Eosinophils Percent Auto 1.7 % (0-4); Hematocrit 42.9 % (37.0-47.0); Hemoglobin 13.7 g/dl (12.0-16.0); Imm Gran Abs Auto 0.02 X10*3/uL (0.00-0.03); Imm Gran Pct Auto 0.3 % (0.0-0.4); Lymphocytes Absolute Auto 2.3 X10*3/uL (1.2-4.9); Lymphocytes Percent Auto 30.1 % (20-40); Mean Corpuscular HGB Conc 31.9 g/dl (31.0-35.0); Mean Corpuscular Hemoglobin 27.4 pg (27.0-33.0); Mean Corpuscular Volume 85.8 fL (80.0-98.0); Mean Platelet Volume 11.8 fL (9.4-12.3); Monocytes Absolute Auto 0.4 X10*3/uL (0.1-1.2); Monocytes Percent Auto 5.6 % (2-11); Neutrophils Absolute Auto 4.8 x10*3/uL (2.0-8.3); Neutrophils Percent Auto 61.4 % (45-73); Platelet Count 296 X10*3/uL (160-400); Red Cell Distribution Width 12.8 % (11.0-16.0); White Blood Count 7.7 X10*3/uL (4.8-10.8)
[2022-12-24 14:39] LABS: Alanine Aminotransferase 13 U/L (0-31); Albumin Level 3.9 g/dL (3.5-5.0); Alkaline Phosphatase 77 U/L (39-117); Anion Gap 12 (12-20); Aspartate Amino Transferase 14 U/L (5-31); Bilirubin Total 0.4 mg/dL (0.0-1.0); Blood Urea Nitrogen 12 mg/dL (9-16); Carbon Dioxide 21 mmol/L (22-29); Chloride 111 mmol/L (96-108); Cholesterol 197 mg/dL (<200); Estimated Glomerular Filt Rate > 60; Glucose Fasting 79 mg/dL (60-99); HDL Cholesterol 44 mg/dL (>40); LDL Cholesterol Calculated 138 mg/dL (<100); Potassium 3.5 mmol/L (3.3-5.1); Sodium 140 mmol/L (135-145); Total Protein 7.4 g/dL (6.5-8.0); Triglycerides 76 mg/dL (<150)
[2022-12-24 14:40] LABS: TSH reflex Free T4 2.42 uIU/mL (0.32-4.0)
== END 2022-12-24 11:19 | disposition home or self-care (01) ==
LOC: HO.HMGCLDS 11:18
PROVIDERS: PCP Internal Medicine; Visit Provider Internal Medicine
DX: Z00.01 Encounter for general adult medical examination with abnormal findings (principal); G43.909 Migraine, unspecified, not intractable, without status migrainosus; E66.01 Morbid (severe) obesity due to excess calories; M79.7 Fibromyalgia; M25.50 Pain in unspecified joint
CPT/HCPCS: 36415; 80053; 80061; 84443; 85025

== ENCOUNTER 2023-12-15 13:05 | Outpatient (AMB) | payer OTHER, SELFPAY ==
--- NOTE | 2023-12-15 13:19 | MHC.OFFVIS ---
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 Binder And Box Builder Required: No Information Interpreted: clinical only Hand Packer/Packager: Hand Packer/Packager Present Allergies Seasonal Allergies Allergy (Mild, Verified 12/15/23 13:26) Hives shellfish Allergy (Mild, Uncoded 12/15/23 13:26) Anaphylaxis Medication List - Last Reconciled 12/15/23 by Vivian Coreas CNM gabapentin 600 mg PO TID meclizine 25 mg PO BID 30 days prednisolone acetate 1% 1 drp ophthalmic (eye) QID prednisone 10 mg PO DAILY propranolol 10 mg PO .qhs 30 days timolol maleate 0.5% 1 drp ophthalmic (eye) BID topiramate 100 mg PO BID Is last menstrual period known: Yes Last menstrual period: 11/25/23 HPI HPI 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 She is not contraceptive thing and she is open to if it happens she is however actively working on weight loss and has been doing so for the last 3 years and has lost 40 lb in that time by eating healthier and exercising she likes running on the treadmill at [employer] and she has started adding weights into her regime as well and she is being careful about what she eats. She is open to if it happens but not trying actively yet and not in any hurry at this time. She has had vertigo for years and still gets it and is on various meds and thinks they help but completely. She also has fibromyalgia. [facility] Medical History Glaucoma Migraines Hypertension Carpal tunnel syndrome Fibromyalgia Tinea versicolor Morbid obesity Surgical History Hx of KAYLEEN Family History Father HTN (hypertension) Mother Diabetes mellitus CVD (cardiovascular disease) Maternal Aunt Diabetes mellitus Breast cancer Maternal Uncle Colon cancer Other Mental health disorder Substance use disorder Social History Housing: Apartment Alcohol intake: never Patient Tobacco Use Status: Never used Tobacco e-Cigarette/Vaping Use: Never Used service: No Current occupational status: employed Gender identity: Female Cognitive needs: No Hearing needs: No Vision needs: Yes Female Reproductive History Menstrual Age of Menarche: 11 Duration of menses: 3-5 days Date of last menstrual period: 11/25/23 control method: none Total pregnancies: 0 Date of last pap smear: 07/09/22 (neg.2020 WNL) History of abnormal pap smear: No Physical Exam Vital Signs: Last Vital Signs BP 118/70 12/15/23 13:25 BMI result Body Mass Index 46.3 Const General: healthy appearing, comfortable, no acute distress, well developed and alert Nutritional Appearance: average body habitus Orientation/consciousness: patient oriented x3 Limitations: no limitations HEENT Head: Yes normocephalic Neck Neck: Yes normal visual inspection Chest Chest palpation & inspection: normal inspection of the chest Breast/axilla inspection: normal inspection of the breasts and normal inspection of the axillae Breast/axilla palpation: normal palpation of the breasts and normal palpation of the axillae Resp Effort & Inspection: normal respiratory effort GI Inspection: Yes normal to inspection, No Abdominal wall edema and No distended Palpation (GI): Soft to palpation and nontender Other: In vagina is and moist cervix is nulliparous pink smooth tightly closed uterus small anteverted mobile nontender good tone Kegel no discharge at all. General: Yes bladder normal to palpation External Female Exam: normal external appearance and normal appearance of the urethra Speculum Exam - Vagina: normal appearance of the vagina, normal palpation and normal vaginal discharge Speculum Exam - Cervix: normal appearance of the cervix, normal palpation and nontender Bimanual exam- vagina & uterus: normal bimanual exam, normal palpation, uterine size normal, bladder normal to palpation, consistency normal, normal palpation, uterine mobility normal, uterine shape normal, No Cervical tenderness present, non-tender and no cervical motion tenderness Bimanual Exam- Adnexa, other: normal adnexae, no masses, normal and No adnexal tenderness Neuro General: patient oriented x3 Results Reviewed Results Reviewed: Name: Kasie Love Age/Sex: 27/F Attending: Vivian Coreas CNM : 1995 Submitted by: Vivian Coreas CNM Copies to: Bernardino Barnett MD MR #: [id number] Status: DEP REF Collected: 07/08/22 Location: [facility] Received: 07/09/22 Interpretation Satisfactory for evaluation. Negative for intraepithelial lesion or malignancy. Clinical Information LMP: 06/26/22 Previous PAP test: 02/28/20, WNL Material Received ThinPrep-Cervical Copies To Bernardino Barnett MD [address] [facility] [place] [address] Vivian [address]as[address] [place] [address] Electronically Signed By: Brti Smith 07/14/22 1240 The Pap Test is a screening procedure with the inherent possibility of both false negative and false positive results. Results should be interpreted in the context of historic and current clinical findings. Reliability of the Pap Test is enhanced by performing the test on a regular repetitive basis. Patient: Kasie Love Age/Sex: 27/F MR#: [id number] Page 1 of 1 Name: Kasie Love Specimen #: [id number] Age/Sex: 24/F Attending: Niecy Gillette CNM : 1995 Submitted by: Niecy Gillette CNM Collected: 02/27/20 MR #: [id number] Received: 02/28/20 Status: DEP REF Location: [facility] Interpretation Satisfactory for evaluation. Negative for intraepithelial lesion or malignancy. Clinical Information LMP: February 2020 Previous PAP test: First pap Material Received ThinPrep cervical Electronically Signed By: SALMA Mcginnis (ASCP) 03/14/20 122 Patient: Kasie Love Age/Sex: 24/F MR#: [id number] Page 1 of 1 Assessment & Plan Assessment & Plan (1) Cervical cancer screening: Comment: neg pap 02/28/20.; 07/08/2022 Pap is negative. Code(s): Z12.4 - Encounter for screening for malignant neoplasm of cervix Category: Medical (2) Obesity, morbid, BMI 50 or higher: Comment: actively working on this 03/24; 12/15/2023 is down to 270 and 46.3 BMI!! Code(s): E66.01 - Morbid (severe) obesity due to excess calories Category: Medical (3) Well woman exam with routine gynecological exam: Code(s): Z01.419 - Encounter for gynecological examination (general) (routine) without abnormal findings Category: Medical (4) Routine screening for STI (sexually transmitted infection): Code(s): Z11.3 - Encounter for screening for infections with a predominantly sexual mode of transmission Category: Medical (5) Vertigo: Code(s): R42 - Dizziness and giddiness Category: Medical Plan -----Discussed in this visit the following: healthy balanced diet, regular and consistent exercise, getting recommended health screens, doing the best she can for her particular health concerns, kegel exercises, pap smear screening and followup recommendations, mammography screening and SBE, normal changes in cycles in her life stage--- . I congratulated her on her hard work and exercise and eating well which have resulted in losing up to 40 lb in the last 3 years. She is not due for a Pap smears year offered testing for STIs she did not think she needs blood work but excepted testing during the visit. I reviewed her menses she is aware of when she ovulates. She finds she is often busy and either working or something else is going on around the time of ovulation or else her is busy and working. She is not in hurry to have kids but in the conversation she was worried that maybe she is waiting to late. I did discuss declined fertility as time goes by but she is actively working on her weight loss which is very important in order to have healthier life and anyway and that is an excellent goal. She is taking multivitamins that have folic acid as well as other vitamins. I also suggested she Google information about physical therapy maneuvers that may help vertigo and if she is interested to consider asking for a physical therapy referral Coding Level of Care Code Est Pt Prev Care 18-39y([id number]) Diagnoses Cervical cancer screening Z12.4 Obesity, morbid, BMI 50 or higher E66.01 Well woman exam with routine gynecological exam Z01.419 Routine screening for STI (sexually transmitted infection) Z11.3 Vertigo R42
[2023-12-15 13:25] VITALS: BP 118/70; BMI 46.3
== END 2023-12-15 14:45 | disposition home or self-care (01) ==
LOC: HO.HWSM 13:05
PROVIDERS: PCP Internal Medicine; Visit Provider Advanced Practice Midwife
DX: Z01.419 Encounter for gynecological examination (general) (routine) without abnormal findings (principal); R42 Dizziness and giddiness; E66.01 Morbid (severe) obesity due to excess calories
CPT/HCPCS: 99395

== ENCOUNTER 2023-12-15 13:05 | Outpatient (REF) | payer OTHER, SELFPAY ==
[2023-12-16 11:36] LABS: CT PCR NOT DETECTED (Not Detect.); NG PCR NOT DETECTED (Not Detect.)
[2023-12-16 11:38] LABS: Bacterial Vaginosis PCR NEGATIVE (Negative); Candida Group PCR NOT DETECTED (Not Detect); Candida glab krusei PCR NOT DETECTED (Not Detect); Trichomonas vaginalis PCR NOT DETECTED (Not Detect)
== END 2023-12-15 13:06 | disposition home or self-care (01) ==
LOC: HO.LAB 13:05
PROVIDERS: PCP Internal Medicine; Visit Provider Advanced Practice Midwife
DX: N89.8 Other specified noninflammatory disorders of vagina (principal); Z20.2 Contact with and (suspected) exposure to infections with a predominantly sexual mode of transmission; Z12.4 Encounter for screening for malignant neoplasm of cervix; E66.01 Morbid (severe) obesity due to excess calories; Z01.419 Encounter for gynecological examination (general) (routine) without abnormal findings; Z11.3 Encounter for screening for infections with a predominantly sexual mode of transmission; R42 Dizziness and giddiness
CPT/HCPCS: 0352U; 87491; 87591; 99395

== ENCOUNTER 2024-01-22 09:46 | Outpatient (AMB) | payer OTHER, SELFPAY ==
[2024-01-22 09:48] VITALS: BP 118/74; PULSE 91; O2SAT 98; BMI 46.1
--- NOTE | 2024-01-22 09:48 | MHC.PC.OV ---
Vital Signs 01/22/24 09:48 Height 5 ft 4 in Weight 268 lb 8 oz BMI 46.1 BP 118/74 Blood Pressure Location Lt brachial Position Sitting Pulse 91 Pulse Source Pulse Oximeter Pulse Oximetry (%) 98 Oxygen Delivery Method Room Air Intake Visit Reasons: Follow Up Allergies Seasonal Allergies Allergy (Mild, Verified 01/22/24 09:55) Hives shellfish Allergy (Mild, Uncoded 12/15/23 13:26) Anaphylaxis Medication List - Last Reconciled 01/22/24 by Bernardino Barnett MD gabapentin 600 mg PO TID meclizine 25 mg PO BID 30 days prednisolone acetate 1% 1 drp ophthalmic (eye) QID prednisone 10 mg PO DAILY propranolol 10 mg PO .qhs 30 days rizatriptan 10 mg PO Q2-4H PRN sumatriptan succinate 50 mg PO timolol maleate 0.5% 1 drp ophthalmic (eye) BID topiramate 100 mg PO BID Tobacco use date assessed: 01/22/24 Dental Screening Dental Screen Date: 01/22/24 Did you have a dental visit in the last 12 months?: Yes Did you have a dental problem in the last 6 months where you did not have access to dental care?: No Was dental information given to patient?: Patient has dentist HPI Follow Up HPI Details Patient is 28-year-old female came in today for physical examination She is currently seeing Dr. Ortez neurology, workup is in process to rule out seizure-like activities Lab order placed to be done fasting Patient is morbidly obese, trying to lose weight. Offer no complaints today PFSH Medical History Glaucoma Migraines Hypertension Carpal tunnel syndrome Fibromyalgia Tinea versicolor Morbid obesity Surgical History Hx of LASIK Family History Father HTN (hypertension) Mother Diabetes mellitus CVD (cardiovascular disease) Maternal Aunt Diabetes mellitus Breast cancer Maternal Uncle Colon cancer Other Mental health disorder Substance use disorder Social History Housing: Apartment Alcohol intake: never Patient Tobacco Use Status: Never used Tobacco e-Cigarette/Vaping Use: Never Used service: No Current occupational status: employed Gender identity: Female Cognitive needs: No Hearing needs: No Vision needs: Yes Female Reproductive History Menstrual Age of Menarche: 11 Questionnaire PHQ-9 Over the last 2 weeks, how often have you been bothered by any of the following problems? 1. Little interest or pleasure in doing things: not at all 2. Feeling down, depressed, or hopeless: not at all 3. Trouble falling or staying asleep, or sleeping too much: several days 4. Feeling tired or having little energy: not at all 5. Poor appetite or overeating: not at all 6. Feeling bad about yourself - or that you are a failure or have let yourself or your family down: not at all 7. Trouble concentrating on things, such as reading the newspaper or watching television: not at all 8. Moving or speaking so slowly that other people could have noticed. Or the opposite - being so fidgety or restless that you have been moving around a lot more than usual: not at all 9. Thoughts that you would be better off or of hurting yourself in some way: not at all Total score: 1 Depression Screening Interpretation: Negative Depression Screening Done: Yes 17032 - PHQ-9 Billing: Yes Source: Developed by Drs. Julio Loco, Kelley Blum, Hu Valentine and colleagues, with an educational liam from [employer]. Thrive Questionnaire Date Thrive assessed: 01/22/24 I am a: Patient What is your living situation today?: I have a steady place to live Within the past 12 months, did the food you bought not last and you didn't have the money to get more?: Never true Within the past 12 months, did you worry whether your food would run out before you got money to buy more?: Never true Do you have trouble paying for medicines?: I choose not to answer this question Do you have trouble getting transportation to medical appointments?: No Do you have trouble paying your heating and electricity bill?: No Do you have trouble taking care of your child, family member or friend?: No Do you have trouble with day-to-day activities such as bathing, preparing meals, shopping, managing finances, etc.?: No Are you currently unemployed and looking for a job?: No Are you interested in more education?: No Please select the resources that you would like help with: None Currently or been in a relationship where the following occur: No concerns reported THRIVE Score: 0 AUDIT C Alcohol Use Questionnaire (AUDIT-C) 1. How often do you have a drink containing alcohol?: Never 3. How often do you have six or more drinks on one occasion?: Never Total Score: 0 Score Reviewed/Action Taken: Yes CHAPIS-7 AMB Questionnaire CHAPIS-7 Date CHAPIS - 7 assessed: 01/22/24 Feeling nervous, anxious, or on edge: 0 = Not at all Not being able to stop or control worryin = Not at all Worrying too much about different things: 0 = Not at all Trouble relaxin = Not at all Being so restless that it is hard to sit still: 0 = Not at all Becoming easily annoyed or irritable: 0 = Not at all Feeling afraid as if something awful might happen: 0 = Not at all Total CHAPIS-7 score (0-4 normal; 5-9 mild; 10-14 moderate; 15-21 severe): 0 Source: Developed by Drs. Julio Loco, Kelley Blum, Hu Valentine and colleagues, with an educational liam from [employer]. CHAPIS-7 Assessment Billing CHAPIS-7 Assessment Tool: CHAPIS-7 Assessment 46810 Review of Systems Const Denies chills, Denies fever(s) and Denies headache(s) Eyes Denies blurry vision ENT Denies headache(s), Denies nasal discharge, Denies nasal obstruction, Denies odynophagia and Denies sinus pain Card Denies chest pain at rest and Denies chest pain with activity Resp Denies cough and Denies hemoptysis GI Denies diarrhea, Denies odynophagia, Denies vomiting and Denies hematemesis Reports as per HPI Musc Denies abnormal gait Skin/Breast Reports as per HPI Neuro Denies Neuro-related abnormal movements, Denies Abnormal speech present, Denies abnormal gait, Denies headache(s) and Denies Sensory deficit (Neuro) Psych Denies mood swings and Denies paranoia Endo Reports as per HPI Andres/Lymph Reports as per HPI Aller/Immun Reports as per HPI Physical exam (Primary Care) Vital Signs: Last Vital Signs Pulse 91 01/22/24 09:48 BP 118/74 01/22/24 09:48 Pulse Ox 98 01/22/24 09:48 Oxygen Delivery Method Room Air 01/22/24 09:48 BMI result Body Mass Index 46.1 Tobacco/Smoking Status: Tobacco use Status Tobacco use date assessed 01/22/24 01/22/24 09:58 Patient Tobacco Use Status Never used Tobacco 01/22/24 09:49 Tobacco use type 09/16/21 15:41 e-Cigarette/Vaping Use Never Used 01/22/24 09:49 PHQ-9: PHQ-9 Score PHQ-9: Total score 1 01/22/24 10:13 Depression Screening Interpretation: Negative Thrive Assessment: Date of Thrive Assessment Date Thrive assessed 01/22/24 01/22/24 09:58 Currently or been in a relationship where the following occur: No concerns reported Const General: cooperative, comfortable and no acute distress Orientation/consciousness: patient oriented x3 HENMT Head: Yes normocephalic and Yes atraumatic Eyes General: appearance normal, both eyes and all related structures Pupils: Equal, round and reactive pupils present EOM: EOMs intact bilaterally Neck Neck: Yes supple and No lymphadenopathy Thyroid: Thyroid normal Lymphatic: no lymphadenopathy noted Resp Effort & Inspection: normal respiratory effort and able to speak in complete sentences Auscultation: clear to auscultation bilaterally Cardio Heart sounds: S1 normal heart sound present and S2 normal heart sound present GI Palpation (GI): Soft to palpation and nontender Auscultation: normal bowel sounds General: Yes no CVA tenderness Back/Spine/Pelvis Back: no CVA tenderness Skin General skin exam: elasticity normal and turgor normal Neuro General: patient oriented x3 and gait normal Cranial nerves: Yes Equal, round and reactive pupils present Speech: No Abnormal speech present Sensory Exam: No Sensory deficit (Neuro) Coordination: tandem gait normal and Romberg test negative Extrem General: Yes normal exam except as noted and No edema Assessment and Plan Assessment & Plan (1) Adult general medical examination: Code(s): Z00.00 - Encounter for general adult medical examination without abnormal findings (2) Migraine headache: Code(s): G43.909 - Migraine, unspecified, not intractable, without status migrainosus Qualifiers: Intractability: not intractable Migraine type: unspecified Status migrainosus presence: without status migrainosus Qualified Code(s): G43.909 - Migraine, unspecified, not intractable, without status migrainosus (3) Environmental allergies: Code(s): Z91.09 - Other allergy status, other than to drugs and biological substances (4) Fibromyalgia: Code(s): M79.7 - Fibromyalgia (5) Obesity, morbid, BMI 50 or higher: Comment: actively working on this 03/24; 12/15/2023 is down to 270 and 46.3 BMI!! Code(s): E66.01 - Morbid (severe) obesity due to excess calories Plan Patient is 28-year-old female came in today for physical examination She is currently seeing Dr. Ortez neurology, workup is in process to rule out seizure-like activities Lab order placed to be done fasting Patient is morbidly obese, trying to lose weight. Offer no complaints today Orders: Orders TSH reflex Free T4 Today E66.01 - Morbid (severe) obesity due to excess calories, G43.909 - Migraine, unspecified, not intractable, without status migrainosus, M79.7 - Fibromyalgia, Z00.01 - Encounter for general adult medical examination with abnormal findings, Z91.09 - Other allergy status, other than to drugs and biological substances Complete Blood Count Auto Diff Today E66.01 - Morbid (severe) obesity due to excess calories, G43.909 - Migraine, unspecified, not intractable, without status migrainosus, M79.7 - Fibromyalgia, Z00.01 - Encounter for general adult medical examination with abnormal findings, Z91.09 - Other allergy status, other than to drugs and biological substances Comprehensive [place]. Panel Fast Today E66.01 - Morbid (severe) obesity due to excess calories, G43.909 - Migraine, unspecified, not intractable, without status migrainosus, M79.7 - Fibromyalgia, Z00.01 - Encounter for general adult medical examination with abnormal findings, Z91.09 - Other allergy status, other than to drugs and biological substances Lipid Panel Today E66.01 - Morbid (severe) obesity due to excess calories, G43.909 - Migraine, unspecified, not intractable, without status migrainosus, M79.7 - Fibromyalgia, Z00.01 - Encounter for general adult medical examination with abnormal findings, Z91.09 - Other allergy status, other than to drugs and biological substances Medications: Discontinued meclizine Discontinued Reason: Doctor's Order 25 mg PO BID 30 days 60 tabs 0RF Coding Level of Care Code Est Pt Prev Care 18-39y(35045) Diagnoses Adult general medical examination Z00.00 Migraine without status migrainosus, not intractable, unspecified migraine type G43.909 Intractability: not intractable Migraine type: unspecified Status migrainosus presence: without status migrainosus Environmental allergies Z91.09 Fibromyalgia M79.7 Obesity, morbid, BMI 50 or higher E66.01 Additional Codes CHAPIS-7 Assessment Billing - CHAPIS-7 Assessment Tool: CHAPIS-7 Assessment 88614 ([id number])
== END 2024-01-22 10:15 | disposition home or self-care (01) ==
PROVIDERS: PCP Internal Medicine; Visit Provider Internal Medicine
DX: Z00.00 Encounter for general adult medical examination without abnormal findings (principal); E66.01 Morbid (severe) obesity due to excess calories; Z68.42 Body mass index [BMI] 45.0-49.9, adult; G43.909 Migraine, unspecified, not intractable, without status migrainosus; Z91.09 Other allergy status, other than to drugs and biological substances; M79.7 Fibromyalgia

== ENCOUNTER 2024-01-22 13:08 | Outpatient (REF) | payer OTHER, SELFPAY ==
--- NOTE | ~2024-01-22 | CT_ITS ---
EXAMINATION CT HEAD WITHOUT CONTRAST CLINICAL INFORMATION: Syncope and collapse COMPARISON: None TECHNIQUE: CT of the head was performed without intravenous contrast. Reformatted axial, coronal, and sagittal images were reviewed. This CT examination was performed using dose optimization techniques as appropriate, variously including the following: *Automated exposure control *Adjustment of mA and/or kV according to patient size (this includes techniques or standardized protocols for targeted exams where dose is matched to indication/reason for exam; i.e. extremities or head) *Use of iterative reconstruction technique DLP: 749 mGy-cm FINDINGS: No intracranial hemorrhage, extra-axial fluid collection, or midline shift is identified. Corona-white matter differentiation is preserved. The ventricles are within normal limits. Basal cisterns are within normal limits. Paranasal sinuses are clear. Mastoid air cells and middle ear cavities are clear. No acute calvarial fractures. CT/CT head/brain wo IV con IMPRESSION: No acute intracranial abnormality. Electronically signed by: Blake Brown DO 01/24/2024 11:21 AM EDT
== END 2024-01-22 13:09 | disposition home or self-care (01) ==
LOC: HO.CT 13:08
PROVIDERS: PCP Internal Medicine; Visit Provider Registered Nurse
DX: R55 Syncope and collapse (principal)
CPT/HCPCS: 70450; 96127; 99395

== ENCOUNTER → 2024-02-01 12:27 | Outpatient (REF) | payer OTHER, SELFPAY ==
--- NOTE | 2024-02-01 12:30 | HM_ITS ---
Conclusion: 1. Patient was monitored for total period of 2 days 2. Baseline was normal sinus rhythm with average heart of 61 beats per minute 3. No significant pauses noted but frequent sinus bradycardia noted with 48% of time heart rate below 60 beats per minute 4. Occasional PACs noted 5. Patient marked the monitored 2 times correlating with PACs MTDD
== END ==
LOC: HO.CARD 12:27
PROVIDERS: PCP Internal Medicine; Visit Provider Registered Nurse
DX: R55 Syncope and collapse (principal)
CPT/HCPCS: 93225

== ENCOUNTER → 2024-02-01 12:30 | Outpatient (BNV) | payer OTHER, SELFPAY | PROVIDERS: PCP Internal Medicine; Visit Provider Internal Medicine Cardiovascular Disease | DX: R00.1 Bradycardia, unspecified (principal) | CPT/HCPCS: 93227 ==

== ENCOUNTER 2024-12-06 13:45 | Outpatient (AMB) | payer OTHER, SELFPAY ==
--- OUTSIDE RECORDS SUMMARY | 2024-12-06 14:27 | XMS_ITS | Clinical Summary ---
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 Name Role Phone Jose Villegas MD Primary Care Provider [phone] Social History Tobacco Use Types Packs/Day Years Used Date Smoking Tobacco: Never Assessed Comments Unknown Sex and Gender Information Value Date Recorded Sex Assigned at Not on file Legal Sex Female 5:07 PM EST Gender Identity Not on file Sexual Orientation Not on file Plan of Treatment Health Maintenance Due Date Last Done Comments Hepatitis B Vaccines (1 of 3 - 19+ 3-dose series) 2013 Cervical Cancer Screening: P ap Smear 2015 COVID-19 Vaccine (2023-2 5 season) 2024 07/18/2021, 02/14/2021, 01/24/2021 HIV Screening 03/14/2024 Hepatitis C Screening 03/14/2024 Social Influencers of Health Screening 03/14/2024 Depression Screening 05/04/2024 Influenza Vaccine (#1) 2025 DTaP,Tdap,and Td Vaccines (2 - Td or Tdap) 12/16/2027 12/15/2017 HIB Vaccines Aged Out No longer eligi ble based on patient's age to complete this topic HPV Vaccines Aged Out No longer eligi ble based on patient's age to complete this topic Hepatitis A Vaccines Aged Out No long er eligible based on patient's age to complete this topic IPV Vaccines Aged Out No longer eligi ble based on patient's age to complete this topic MMR Vaccines Aged Out No longer eligi ble based on patient's age to complete this topic Meningococcal ACWY Vaccine Aged Out N o longer eligible based on patient's age to complete this topic Meningococcal B Vaccine Aged Out No l onger eligible based on patient's age to complete this topic Pneumococcal Vaccine: Pediatrics (0 to 5 Years) and At-Risk Patients (6 to 49 Years) Aged Out No longer eligible b ased on patient's age to complete this topic RSV Immunization Patients Under 20 months Aged Out No longer eligible b ased on patient's age to complete this topic Varicella Vaccines Aged Out No longer eligible based on patient's age to complete this topic Insurance [facility] Care Teams Aircraft Instrument Engineer Relationship Specialty Start Date End Date Jose Villegas MD [address] [place], [place] PCP - General 06/17/10
--- NOTE | 2024-12-06 14:43 | A.OFFVIS_ITS ---
Intake Visit Reasons: 4 months follow up Allergies Seasonal Allergies Allergy (Mild, Verified 12/06/24 14:47) Hives shellfish Allergy (Mild, Uncoded 12/06/24 14:47) Anaphylaxis Medication List - Last Reconciled 12/06/24 by Magaly Arora CNP alprazolam 0.5 mg PO BID gabapentin 300 mg PO TID levetiracetam 500 mg PO BID meclizine 25 mg PO DAILY PRN ondansetron 4 mg PO Q8H prednisone 10 mg PO DAILY sumatriptan succinate take 1 tab at onset of headache; if no relief, may repeat 1 tab after at least 2 hrs; max = 2 tabs/24 hrs PO 30 days timolol maleate 0.5% 1 drp ophthalmic (eye) BID topiramate 50 mg PO BID HPI Comments Details: She was doing okay. Taking levetiracetam 500mg twice a day, no medication side effects. Feels spells are better with medication, getting some spells where she zones out for a few seconds a few times a week and is aware it is happening. No change in headaches. Gets sharp frontal headache and occipital 2-3x/week. Sleep was okay. Stress was okay. Headaches are associated with photophobia, sonophobia, and nausea and sometimes vomiting when severe. Sumatriptan as needed helps. No specific triggers identified, possibly stress and heat. 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 FM stable with gaabapentin and prednisone 10mg daily. In the past, had few dizzy spells and 2 fainting episodes. Passed out and was shaking on the floor? last week. No injury. Had a headache after. Previously her? heard and came into the room where he saw her twitching on the ground. For both episodes, she is unsure how long she passed out for. There was no tongue bite or incontinence. She felt slightly confused, sore, and very tired after both episodes and had to nap. Generalized pain all over body from fibromyalgia continued, sensitivity and burning sensation all over. Had 3, brief < 30 second dizzy spells with vertigo, without quick movement in the past. Gets weird shocks in the hands to elbow and swelling. [facility] Medical History (Updated 12/06/24 @ 14:45 by Magaly Arora CNP) Seizure disorder RLS (restless legs syndrome) Pseudotumor cerebri Fibromyalgia Glaucoma Migraines Hypertension Carpal tunnel syndrome Fibromyalgia Tinea versicolor Morbid obesity Surgical History Hx of CALVINIK Family History Father HTN (hypertension) Mother Diabetes mellitus CVD (cardiovascular disease) Maternal Aunt Diabetes mellitus Breast cancer Maternal Uncle Colon cancer Other Mental health disorder Substance use disorder Social History Housing: Apartment Alcohol intake: never Patient Tobacco Use Status: Never used Tobacco e-Cigarette/Vaping Use: Never Used service: No Current occupational status: employed Gender identity: Female Cognitive needs: No Hearing needs: No Vision needs: Yes Female Reproductive History Menstrual Age of Menarche: 11 Review of Systems Const Denies chills, Denies daytime sleepiness, Denies difficulty sleeping, Denies fatigue, Denies fever(s), Denies frequent falls, Reports headache(s), Denies increased appetite, Denies poor appetite, Denies snoring, Denies weakness, Denies weight gain and Denies weight loss Eyes Denies loss of vision ENT Denies vertigo, Denies dizziness, Reports headache(s) and Denies neck pain Card Denies chest pain at rest, Denies chest pain with activity, Denies syncope, Denies leg edema, Denies palpitations, Denies dyspnea and Denies dyspnea on exertion Resp Denies cough, Denies dyspnea, Denies dyspnea on exertion and Denies snoring GI Denies abdominal pain, Denies constipation, Denies heartburn, Denies diarrhea and Denies nausea Denies urinary frequency, Denies urinary incontinence and Denies urinary urgency Musc Denies abnormal gait, Denies back pain, Denies myalgias, Reports arthralgias, Denies neck pain, Denies numbness and Denies tingling Neuro Denies abnormal gait, Denies vertigo, Denies dizziness, Denies syncope, Denies frequent falls, Reports headache(s), Denies lack of coordination, Denies loss of vision, Denies memory loss, Denies numbness, Denies Other visual disturbances, Denies restless legs, Denies seizure-like activity, Denies tingling, Denies paresthesias, Denies tremor(s) and Denies weakness Psych Reports anxiety, Denies depression, Denies auditory hallucinations, Denies memory loss and Denies visual hallucinations Endo Denies fatigue and Denies palpitations Physical Exam Const Other: General Appearance:? normal, in no acute distress. Heart:? S1, S2 normal, no murmurs. Lungs:? clear anteriorly and posteriorly. Musculoskeletal:? normal. Extremities:? no edema. Psych:? alert, oriented, cognitive function intact, cooperative with exam. Neuro Other: Abnormal Neurological Findings:?none.? Mental Status: alert and oriented X 3. Normal attention, orientation, memory, and affect. Cranial Nerves: Pupils are equal, round, and reactive to light. External ocular muscles are intact. Visual foreman are full, no ptosis. Face is symmetrical, no facial weakness or droop. Facial sensations are normal. Tongue protrudes in midline. Palate elevates symmetrically. Shoulder shrugging is normal Motor Examination: Normal muscle tone, bulk and strength. No atrophy or fasciculations. No drift of the extended upper extremities. DTR 2+. Plantars are flexor. Straight Leg Raisin degrees. Sensory Exam: Normal light touch, temperature, pinprick, vibration, and joint-po sition sensations. Rhomberg sign is absent. Coordination: No ataxia. No titubation. Cserof-cn-ziea, [id number]-[id number] test, and rapid alternating movements were normal. Gait Exam: Within normal limits. Cerebellar Signs: [id number] and [id number]-uy-bkdz is normal. No dysdiadochokinesia. Extrapyramidal System: No tremor, rigidity with normal facial expressions. No bradykinesia. No bradyphrenia. Normal arm swing and posture. No propulsion or retropulsion. Speech: Normal. No dysphasia or dysarthria. Results Reviewed Results Reviewed: 48 hr ambulatory EEG is suggestive of a Sz disorder with multiple generalized paroxysmal bursts of sharp configuration theta dischages lasting upto 13 secs and some from sharp waves as well. 3 previous routine EEGs were normal. Assessment & Plan Assessment & Plan (1) Seizure disorder: Code(s): G40.909 - Epilepsy, unspecified, not intractable, without status epilepticus Category: Medical Plan: Increase levetiracetam 750mg 1 tablet twice a day. (2) Migraines: Code(s): G43.909 - Migraine, unspecified, not intractable, without status migrainosus Category: Medical Qualifiers: Migraine type: unspecified Status migrainosus presence: without status migrainosus Intractability: not intractable Qualified Code(s): G43.909 - Migraine, unspecified, not intractable, without status migrainosus Plan: Continue topiramate 50mg 1 tablet twice a day Continue sumatriptan 100mg 1 tablet twice a day as needed for migraine Continue ondansetron 4mg 1 tablet as needed for nausea (3) Fibromyalgia: Code(s): M79.7 - Fibromyalgia Category: Medical Plan: Continue gabapentin 300mg 1 capsule three times a day. Continue prednisone 10mg 1 tablet daily. Medications: New levetiracetam 750 mg PO BID 180 tabs 1RF 90 days Coding Level of Care Code Est Pt Level 4 (42088) Diagnoses Seizure disorder G40.909 Migraine without status migrainosus, not intractable, unspecified migraine type G43.909 Migraine type: unspecified Status migrainosus presence: without status migrainosus Intractability: not intractable Fibromyalgia M79.7
== END 2024-12-06 14:59 | disposition home or self-care (01) ==
LOC: HO.HSM 13:46
PROVIDERS: PCP Internal Medicine; Referring Provider Internal Medicine; Visit Provider Registered Nurse
DX: G40.909 Epilepsy, unspecified, not intractable, without status epilepticus (principal); G43.909 Migraine, unspecified, not intractable, without status migrainosus; M79.7 Fibromyalgia
CPT/HCPCS: 99214

== ENCOUNTER → 2024-12-06 13:45 | Outpatient (BNVA) | payer OTHER, SELFPAY | PROVIDERS: PCP Internal Medicine; Referring Provider Internal Medicine; Visit Provider Registered Nurse | DX: M79.7 Fibromyalgia (principal); G40.909 Epilepsy, unspecified, not intractable, without status epilepticus; G43.909 Migraine, unspecified, not intractable, without status migrainosus; Z79.52 Long term (current) use of systemic steroids; Z79.899 Other long term (current) drug therapy | CPT/HCPCS: 99212 ==

== ENCOUNTER 2025-04-11 10:28 | Outpatient (AMB) | payer OTHER, SELFPAY ==
--- NOTE | 2025-04-11 10:58 | A.OFFVIS_ITS ---
Vital Signs 04/11/25 11:07 BP 142/94 H Position Sitting Pulse 75 Intake Visit Reasons: 4m sz migraine Allergies Seasonal Allergies Allergy (Mild, Verified 04/11/25 10:59) Hives shellfish Allergy (Mild, Uncoded 04/11/25 10:59) Anaphylaxis Medication List - Last Reconciled 04/11/25 by Magaly Arora CNP alprazolam 0.5 mg PO BID gabapentin 300 mg PO TID levetiracetam 750 mg PO BID 90 days meclizine 25 mg PO DAILY PRN 30 days ondansetron 4 mg PO DAILY PRN 30 days prednisone 10 mg PO DAILY 90 days sumatriptan succinate take 1 tab at onset of headache; if no relief, may repeat 1 tab after at least 2 hrs; max = 2 tabs/24 hrs PO 30 days timolol maleate 0.5% 1 drp ophthalmic (eye) BID topiramate 50 mg PO BID HPI Comments Details: Doing better with increased dose of levetiracetam. Spells where she zones out are less, may happen 3-4x/month and last 20 seconds or less, aware of what is happening. Had 3 migraines in last 4 months with brief, light nose bleed. Migraines started with throbbing-type pain to front of head that spread out to sides of head, pulsating-type, associated with photophobia, sonophobia, and nausea. Sumatriptan as needed helps. Some more FM pains all over with colder weather. Sleep was okay. Stress was okay. Previously with levetiracetam 500mg twice a day, she was getting some spells where she zones out for a few seconds a few times a week. Gets sharp frontal headache and occipital 2-3x/week. Headaches are associated with photophobia, sonophobia, nausea, and sometimes vomiting when severe. No specific triggers identified, possibly stress and heat. 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 FM stable with gabapentin and prednisone 10mg daily. In the past, had few dizzy spells and 2 fainting episodes. Passed out and was shaking on the floor? last week. No injury. Had a headache after. Previously her? heard and came into the room where he saw her twitching on the ground. For both episodes, she is unsure how long she passed out for. There was no tongue bite or incontinence. She felt slightly confused, sore, and very tired after both episodes and had to nap. Generalized pain all over body from fibromyalgia continued, sensitivity and burning sensation all over. Had 3, brief < 30 second dizzy spells with vertigo, without quick movement in the past. Gets weird shocks in the hands to elbow and swelling. [facility] Medical History (Updated 12/06/24 @ 14:45 by Magaly Arora CNP) Seizure disorder RLS (restless legs syndrome) Pseudotumor cerebri Fibromyalgia Glaucoma Migraines Hypertension Carpal tunnel syndrome Fibromyalgia Tinea versicolor Morbid obesity Surgical History Hx of LASIK Family History Father HTN (hypertension) Mother Diabetes mellitus CVD (cardiovascular disease) Maternal Aunt Diabetes mellitus Breast cancer Maternal Uncle Colon cancer Other Mental health disorder Substance use disorder Social History Housing: Apartment Alcohol intake: never Patient Tobacco Use Status: Never used Tobacco e-Cigarette/Vaping Use: Never Used service: No Current occupational status: employed Gender identity: Female Cognitive needs: No Hearing needs: No Vision needs: Yes Female Reproductive History Menstrual Age of Menarche: 11 Review of Systems Const Denies chills, Denies daytime sleepiness, Denies difficulty sleeping, Denies fatigue, Denies fever(s), Denies frequent falls, Reports headache(s), Denies increased appetite, Denies poor appetite, Denies snoring, Denies weakness, Den ies weight gain and Denies weight loss Eyes Denies loss of vision ENT Denies vertigo, Denies dizziness, Reports headache(s) and Denies neck pain Card Denies chest pain at rest, Denies chest pain with activity, Denies syncope, Denies leg edema, Denies palpitations, Denies dyspnea and Denies dyspnea on exertion Resp Denies cough, Denies dyspnea, Denies dyspnea on exertion and Denies snoring GI Denies abdominal pain, Denies constipation, Denies heartburn, Denies diarrhea an d Denies nausea Denies urinary frequency, Denies urinary incontinence and Denies urinary urgency Musc Denies abnormal gait, Denies back pain, Denies myalgias, Reports arthralgias, Denies neck pain, Denies numbness and Denies tingling Neuro Denies abnormal gait, Denies vertigo, Denies dizziness, Denies syncope, Denies frequent falls, Reports headache(s), Denies lack of coordination, Denies loss of vision, Denies memory loss, Denies numbness, Denies Other visual disturbances, Denies restless legs, Denies seizure-like activity, Denies tingling, Denies paresthesias, Denies tremor(s) and Denies weakness Psych Reports anxiety, Denies depression, Denies auditory hallucinations, Denies memory loss and Denies visual hallucinations Endo Denies fatigue and Denies palpitations Physical Exam Const Other: General Appearance:? normal, in no acute distress. Heart:? S1, S2 normal, no murmurs. Lungs:? clear anteriorly and posteriorly. Musculoskeletal:? normal. Extremities:? no edema. Psych:? alert, oriented, cognitive function intact, cooperative with exam. Neuro Other: Abnormal Neurological Findings:?none.? Mental Status: alert and oriented X 3. Normal attention, orientation, memory, and affect. Cranial Nerves: Pupils are equal, round, and reactive to light. External ocular muscles are intact. Visual foreman are full, no ptosis. Face is symmetrical, no facial weakness or droop. Facial sensations are normal. Tongue protrudes in midline. Palate elevates symmetrically. Shoulder shrugging is normal Motor Examination: Normal muscle tone, bulk and strength. No atrophy or fasciculations. No drift of the extended upper extremities. DTR 2+. Plantars are flexor. Sensory Exam: Normal light touch, temperature, pinprick, vibration, and joint- position sensations. Rhomberg sign is absent. Coordination: No ataxia. No titubation. Gait Exam: Within normal limits. Cerebellar Signs: Syyyma-no-wjly is okay. Extrapyramidal System: No tremor, rigidity with normal facial expressions. No bradykinesia. No bradyphrenia. Normal arm swing and posture. No propulsion or retropulsion. Speech: Normal. Results Reviewed Results Reviewed: 48 hr ambulatory EEG is suggestive of a Sz disorder with multiple generalized paroxysmal bursts of sharp configuration theta dischages lasting upto 13 secs and some from sharp waves as well. 3 previous routine EEGs were normal. Assessment & Plan Assessment & Plan (1) Seizure disorder: Code(s): G40.909 - Epilepsy, unspecified, not intractable, without status epilepticus Category: Medical Plan: Continue levetiracetam 750mg 1 tablet twice a day. (2) Migraines: Code(s): G43.909 - Migraine, unspecified, not intractable, without status migrainosus Category: Medical Qualifiers: Migraine type: unspecified Status migrainosus presence: without status migrainosus Intractability: not intractable Qualified Code(s): G43.909 - Migraine, unspecified, not intractable, without status migrainosus Plan: Continue topiramate 50mg 1 tablet twice a day. Continue sumatriptan 100mg 1 tablet twice a day as needed for migraine. Continue ondansetron 4mg 1 tablet as needed for nausea. BP slightly elevated, check BP at home and keep log - follow up with PCP if home BP readings elevated. Follow up in 6 months or sooner as needed. (3) Fibromyalgia: Code(s): M79.7 - Fibromyalgia Category: Medical Plan: Continue gabapentin 300mg 1 capsule three times a day. Continue prednisone 10mg 1 tablet daily. Medications: Changed From gabapentin 300 mg PO TID To gabapentin 300 mg PO TID 270 caps 1RF 90 days From topiramate 50 mg PO BID To topiramate 50 mg PO BID 180 tabs 1RF 90 days Refilled levetiracetam 750 mg PO BID 180 tabs 1RF 90 days Coding Level of Care Code Est Pt Level 4 (00026) Diagnoses Seizure disorder G40.909 Migraine without status migrainosus, not intractable, unspecified migraine type G43.909 Migraine type: unspecified Status migrainosus presence: without status migrainosus Intractability: not intractable Fibromyalgia M79.7
[2025-04-11 11:07] VITALS: BP 142/94; PULSE 75
== END 2025-04-11 11:15 | disposition home or self-care (01) ==
PROVIDERS: PCP Internal Medicine; Visit Provider Registered Nurse
DX: G40.909 Epilepsy, unspecified, not intractable, without status epilepticus (principal); G43.909 Migraine, unspecified, not intractable, without status migrainosus; M79.7 Fibromyalgia
CPT/HCPCS: 99214

== ENCOUNTER → 2025-04-11 10:28 | Outpatient (BNVA) | payer OTHER, SELFPAY | PROVIDERS: PCP Internal Medicine; Visit Provider Registered Nurse | DX: G43.909 Migraine, unspecified, not intractable, without status migrainosus (principal); G40.909 Epilepsy, unspecified, not intractable, without status epilepticus; M79.7 Fibromyalgia; Z79.899 Other long term (current) drug therapy | CPT/HCPCS: 99212 ==